=== PATIENT | male | born 1945 | race Caucasian/White ===

== ENCOUNTER 2024-12-02 11:01 | Day surgery (SDC) | payer MEDICARE, OTHER, SELFPAY ==
[2024-12-02] VITALS (10 sets, daily range): BP systolic 127–154; BP diastolic 60–114; BMI 26.1
--- NOTE | 2024-12-02 11:13 | W.ICD.CONTRA ---
Post ICD/BOXING AND PRESSING SUPERVISOR-D
-
History of DE?: Yes
LV Function
Left ventricular function study result?: Ejection Fraction </= 35%
ACEI/ARB/ARNI
Patient already on ACEI/ARB/ARNI: No
ACEI/ARB/ARNI Contraindication: Hypotension and Worsening Renal Function
Beta-Destin
Patient already on Beta Destin: Yes
--- NOTE | 2024-12-02 14:04 | ITS.CL.ICD ---
Construction Contractor - ICD
Implantable Cardioverter Defibrillator
Procedure Report:
Primary Physician: Dr Brandi Tran
Primary Communications Agent: Dr Nahun Isidro
Procedure Date: 12/02/2024
Procedure:
1: Implantation of TELEPHONE STATION INSTALLER-D utilizing LBBAP pacing lead for conduction system pacing
2: Subclavian venography
Indication/Diagnosis:
1. 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
2. CHF - NYHA class 3
3. LVEF < 35% (despite maximally tolerated GDMT > 90 days)
HISTORY: Please see office H&P.
After informed consent was obtained, the patient was brought to the EP laboratory in a postabsorptive, nonsedated state. Peripheral IV access was established. Prophylactic antibiotics were administered prior to incision. Continuous ECG, blood
pressure, and pulse oximetry were initiated. Cardioversion patch electrodes were placed on the patient's chest and back. A grounding patch was applied to the skin. Sedation was administered by anesthesia.
In order to define the extrathoracic portion of the subclavian vein and exclude significant venous obstruction or anomalous anatomy, subclavian venography was performed prior to the procedure. Using the patient's left peripheral IV, contrast was
injected and images were recorded. The left subclavian vein and SVC were found to be widely patent.
The left chest was prepared and draped in a sterile fashion. A 'time out' was called and confirmed. Local anesthesia was injected in the subcutaneous tissue in the infraclavicular area. An incision was made medial to the deltopectoral groove and
parallel to the clavicle. The subcutaneous tissue was dissected the level of the prepectoral fascia. A subcutaneous pocket was created. Under fluoroscopic guidance and with the assistance of the images from the venogram, three separate
venipunctures were made using micropuncture and modified Seldinger technique. These was performed in the extrathoracic portion of the subclavian vein. Guidewires were passed. Peel-away sheaths were placed, and were used to advance the leads into
the circulation.
Using fluoroscopic guidance, the leads were positioned. The RV lead was advanced to the RV outflow tract. Ventricular ectopy was recorded. Images were taken in HERNANDEZ and POLISH views to ensure appropriate lead placement. The lead tip was subsequently
positioned in the RV apex. Adequate sensing and pacing parameters were found, and no diaphragmatic stimulation was seen with high-output pacing.
Fluoroscopy was used to determine likely anatomic site for left bundle branch pacing. The iDoneThistronic C315 sheath was used to deliver the Medtronic 3830 Selectsecure pacing lead with the helix exposed just exposed from the sheath tip during continuous
monitoring when pacemapping the septum during gentle clockwise rotation to obtain a paced QRS morphology of a W pattern in lead V1. Once the suspected optimal site was identified, lead deployment was performed with several rapid rotations as paced
QRS morphology was intermittently monitored until a paced QRS complex in lead V1 demonstrated development of an R wave (qR or rSR). Unipolar pacing impedance dropped by approximately 100-200 ohms suggesting it had reached the left ventricular
subendocardial. Stable VEgm injury current is present throughout lead position and at end of case. Final unipolar pacing impedance is 860 Ohms. Unipolar pacing threshold is stable at 1.0 V @ 0.4 ms. The patient had pre-existing right bundle branch
block/IVCD morphology at baseline. Final conduction system paced QRS complex duration is 117 ms, LVAT is 78 ms, and peak V5 -> peak V1 timing is 39 ms. The C315 sheath was slit under fluoroscopy ensuring lead position and stability.
Next, the right atrial lead was positioned in the right atrial appendage. Adequate sensing and pacing parameters were found, and no diaphragmatic stimulation was seen with high-output pacing. All sheaths were split, and the leads were secured to
the fascia with Ethibond ties.
The pocket was flushed with antibiotic solution and hemostasis was assured. The generator was connected to the leads and placed inside the pocket and sutured in place. Antibiotic envelope was used. Floseal was applied. The wound was closed with 3
running layers of absorbable suture, and steri-strips were applied. Defibrillator function testing was deferred.
Fluoroscopy was used to guide lead placement. Fluoroscopic exposure 6.7 min and 23.56 mGy.
Following the procedure, the patient was taken to the recovery area in stable condition. A chest x-ray was obtained as routine post-procedure care.
IMPLANTS:
Device: Medtronic Model GJOG6B0, SN: [id number]
RA: Medtronic Model 5076, SN: [id number]
RV ICD: Medtronic, Model 6935 M62, SN: [id number]
RV LBBAP: Medtronic 3830, SN:[id number], Interventricular septum at LBB
DEVICE TESTING:
RA: Sensing 3.2 mV, Capture 0.75 V @0.4 msec, Impedance 418 ohms
RV (ICD lead): Sensing 5.8 mV, Capture 0.5 V @0.4 msec, Impedance 551 ohms
RV (LBBAP lead): Sensing not performed due to pacing, Capture 0.5 V @0.4 msec, Impedance 722 ohms
FINAL PROGRAMMING
Jose Daniel Parameters: DDD with 70 to 130 ppm
Tachy Parameters: 150�167 monitor, 167�188 VT zone by ATP with shock; 188 and above VF zone with ATP while charging with shock
COMPLICATIONS:
There were no complications.
CONCLUSIONS:
1: Successful implantation of TELEPHONE STATION INSTALLER-D utilizing LBBAP pacing lead for conduction system pacing
2: Venogram
RECOMMENDATIONS:
- Admit
- Chest x-ray tonight, [facility] in AM.
- IV antibiotics while the patient is admitted.
- OK to resume home medications as indicated
- Pressure dressing to be removed in AM, aquacell to remain until wound check
- Follow-up will be arranged in the office in 7-10 days post-discharge for incision check
Donnell Knapp DO, FACC, RS
Clinical Cardiac Front Load Trash Truck Driver
cc: Dr Nahun Isidro; Dr Brandi Tran
[2024-12-02] MEDS: TRUSOPT 2% OPHTHALMIC SOLUTION 1 DROP OPHTH ×2 (17:00→21:24)
--- NOTE | 2024-12-02 17:05 | PTCARENOTE ---
Rec'd report from Ray in the EP lab; Rec'd pt AAOx3 w/no c/o CP or SOB. Pt's VSS w/HR in the 70's & BP 131/63 on arrival to the floor. Pt is AV paced on telemetry monitoring. Pt's post procedure EKG & CXR completed. Pt w/L chest wall device site
w/dressing C/D/I w/no signs or symptoms of bleeding or hematoma. Pt's spouse at bedside & assisted pt w/ordering his dinner. Discussed plan of care w/pt, including activity & LUE restrictions; pt verbalized his understanding. Call baker within reach
& plan of care ongoing.
[2024-12-02] MEDS: TYLENOL 650 MG PO (19:10)
[2024-12-02] MEDS: ZETIA 5 MG PO (19:11)
[2024-12-02] MEDS: LIPITOR 40 MG PO (19:12)
[2024-12-02] MEDS: COREG 3.125 MG PO (19:38)
[2024-12-02] MEDS: FLOMAX 0.4 MG PO (21:24)
[2024-12-02] MEDS: ANCEF 5 IV (21:24)
[2024-12-03 02:47] VITALS: BP 148/73
[2024-12-03 03:04] VITALS: BMI 25.1
[2024-12-03 03:15] LABS: Hematocrit 38.2 % (39.0-52.0); Hemoglobin 13.3 g/dL (13.0-18.0); Mean Corp Hgb Conc. 34.8 g/dL (33.0-37.0); Mean Corpuscular Hgb 31.6 pg (27.0-31.0); Mean Corpuscular Volume 90.7 fL (80.0-94.0); Mean Platelet Volume 9.7 fL (7.4-10.4); Platelet Count 230 10^3/uL (130-400); Red Blood Cell Count 4.21 10^6/uL (4.70-6.10); Red Cell Dist. Width 13.5 % (11.5-14.5); White Blood Cell Count 7.7 10^3/uL (4.8-10.8)
[2024-12-03 03:36] LABS: Blood Urea Nitrogen 29 mg/dl (9-20); Calcium 9.4 mg/dl (8.4-10.2); Carbon Dioxide 18 mmol/L (22-30); Chloride 112 mmol/L (98-107); Estimated Creatinine Clearance 51 ml/min; Glucose 184 mg/dl (70-99); Potassium 4.7 mmol/L (3.5-5.1); Sodium 140 mmol/L (135-145); eGFR > 60.00
[2024-12-03] MEDS: ANCEF 5 IV (05:39)
--- NOTE | 2024-12-03 05:46 | PTCARENOTE ---
Pt. AV & V paced all night, frequent PVC's. VSS. Left chest Aquacel with pressure dressing CDI with no hematoma/bleeding assessed, immobilizer on. Peripheral circulation intact. Tylenol effective for incisional pain. Pyreg completed
and transmitted this morning.
--- NOTE | 2024-12-03 07:45 | W.PN.CARDCBS ---
Today's Communication / Plan
-
home
outpt wound check
Impression / Plan
-
Impression:
S/P BIVICD 12/02/2024
Cardiomyopathy
HTN
Hyperlipidemia
DAPT therapy
Recommend:
Stable for discharge
Can remove pressure dressing
Outpatient wound check
Appropriate A/V sensing
Progress Note - [place] Man
Subjective
Date of Service: December 03, 2024
no pain
feels well
Objective
Labs:
12/03/24 02:58
12/03/24 02:58
Labs
Hgb 13.3 g/dL (13.0-18.0) 12/03/24 02:58
Hct 38.2 % (39.0-52.0) L 12/03/24 02:58
Plt Count 230 10^3/uL (130-400) 12/03/24 02:58
Sodium 140 mmol/L (135-145) 12/03/24 02:58
Potassium 4.7 mmol/L (3.5-5.1) 12/03/24 02:58
BUN 29 mg/dl (9-20) H 12/03/24 02:58
Creatinine 1.2 mg/dL (0.7-1.3) 12/03/24 02:58
Glucose 184 mg/dl (70-99) H 12/03/24 02:58
Vital Signs and I&O:
Vital Signs
Temp Pulse Resp BP Pulse Ox
97.7 F 75 18 148/73 95
12/03/24 02:48 12/03/24 04:00 12/03/24 02:48 12/03/24 02:47 12/03/24 02:48
Vital Signs
Temp Pulse Resp BP Pulse Ox
97.7 F 75 18 148/73 95
12/03/24 02:48 12/03/24 04:00 12/03/24 02:48 12/03/24 02:47 12/03/24 02:48
Intake & Output
12/01/24 12/02/24 12/03/24 12/04/24
06:59 06:59 06:59 06:59
Intake Total 1939
Balance 1939
Physical Exam
Physical Exam
exam:
heent ncat
jvp 6
cor regular
site cdi
no ext edema
[2024-12-03 07:51] VITALS: BP 152/59
[2024-12-03] MEDS: COREG 3.125 MG PO (07:56)
[2024-12-03] MEDS: ASPIR LOW (ENTERIC COATED) 81 MG PO (07:57)
[2024-12-03] MEDS: TRUSOPT 2% OPHTHALMIC SOLUTION 1 DROP OPHTH (07:57)
[2024-12-03] MEDS: IMDUR (EXTENDED RELEASE) 30 MG PO (07:57)
[2024-12-03] MEDS: NON-FORMULARY ITEM 1 DROP BOTH EYES (07:57)
--- NOTE | 2024-12-03 11:58 | CM ---
CM following for DC planning needs.
Met w/ patient, spouse at bedside to complete initial assessment.
Patient resides w/ spouse in a private, [facility]. Functionally, patient is indep. w/ ADLs, mobility without the use of any assisted device, though some times uses a SPC while ambulating in the community.
DC plan is for home, no needs.
--- NOTE | 2024-12-03 11:59 | PTCARENOTE ---
~[id number]: Handoff report received from nightshift RN. Pt Aox4, V paced/ AV paced with PVCs on tele, RA. Pt denies pain at this time. Limb immobilizer in place s/p AICD/PPM insertion yesterday. L upper chest with original post-op prpessure dressing
in place, CDI. Ax1 with cane OOB to chair for breakfast. All needs met at this time, call baker within reach.
~[id number]: Discharge paperwork reviewed with patient and , all questions answered. tele monitor and IV removed from patient. Patient wheeled down to lobby in stable condition.
[2024-12-03 12:00] VITALS: BP 117/69
== END 2024-12-03 12:00 | disposition home or self-care (01) ==
LOC: CATH 11:01
PROVIDERS: Nurse Practitioner; ATTENDING PHYSICIAN Internal Medicine Cardiovascular Disease
DX: I11.0 Hypertensive heart disease with heart failure (principal); I50.22 Chronic systolic (congestive) heart failure; I42.9 Cardiomyopathy, unspecified; I49.1 Atrial premature depolarization; E78.5 Hyperlipidemia, unspecified; I49.3 Ventricular premature depolarization; I50.9 Heart failure, unspecified; I45.2 Bifascicular block
CPT/HCPCS: 33249; 71045; 80048; 85027; 93005; C1777; C1882; C1887; C1892; C1898

== ENCOUNTER 2025-01-27 19:10 | Inpatient (IN) | payer MEDICARE, OTHER, SELFPAY ==
[2025-01-27] VITALS (9 sets, daily range): BP systolic 129–145; BP diastolic 62–91; BMI 26.8; BMI 25.2
--- NOTE | 2025-01-27 15:40 | ED.GENMED ---
History of Present Illness
General
Chief Complaint: Breathing Problem
Time Seen by Provider: 01/27/25 15:40
History of Present Illness
History of Present Illness:
PAST MEDICAL HISTORY AND REVIEW OF OLD RECORDS
- The patient has history of CAD, high blood pressure, heart failure. I reviewed records, the patient was admitted here 2 months ago, seen by Dr. Knapp and diagnosed with cardiomyopathy status post BiV ICD implantation.
Note:
CHIEF COMPLAINT(S)
Shortness of breath for several days.
HISTORY OF PRESENT ILLNESS
The patient is a 79-year-old male with a history of cardiomyopathy who presented with shortness of breath over the last several days. He does not normally use supplemental oxygen at home. He reports feeling hypoxic and mentioned that his oxygen
saturation was around 80%. The patient received a pacemaker placement in November. At that time, he had a cardiac catheterization and was prescribed Furosemide (Lasix) for fluid retention, but only took it as directed for three days.
The patient reports stable weight with no recent gain, but notes swelling in the right ankle. He denies any history of blood clots. Neuropathy from the feet up is present but perceived as mild. He has not had significant leg swelling. The patient
further reported significant coughing, especially at night, clearly sensing crackling and wheezing, more pronounced on the right side. He compared the noise to a 'washing machine.'
He feels short of breath when lying flat, thus needing to sit forward all night. A chest x-ray and blood tests to check for heart failure markers are planned. A trial of a breathing treatment was suggested to help loosen congestion.
PAST MEDICAL AND SURIGICAL HISTORY
History of cardiomyopathy and pacemaker placement.
MEDICATIONS
Furosemide (Lasix) was taken previously for fluid retention as prescribed for three days for months ago after the last heart catheterization
PHYSICAL EXAM
General: Alert, no acute distress.
Skin: Warm, dry.
Head: Normocephalic, atraumatic.
Neck: Supple, trachea midline.
Eye Ears, nose, mouth and throat: Oral mucosa moist.
Cardiovascular: Normal peripheral perfusion, mild swelling noted in the right ankle.
Respiratory: Crackling noted, more on the right side, but no wheeze, some decreased breath sounds at the left base
Gastrointestinal: Abdomen nondistended.
Back: Normal range of motion, normal alignment.
Musculoskeletal: Normal range of motion, normal strength. Trace if any right ankle edema
Neurological: Alert and oriented to person, place, time, and situation, No focal neurological deficit observed.
Psychiatric: Cooperative, appropriate mood & affect.
PLAN
1. Obtain a chest x-ray to assess for any pulmonary issues or cardiac-related fluid overflow.
2. Conduct blood tests to check for heart failure markers.
3. Administer a breathing treatment to potentially alleviate symptoms.
DIFFERENTIAL DIAGNOSIS
The Differential Diagnosis includes, in no particular order and is not limited to:
1. Congestive heart failure
2. Chronic obstructive pulmonary disease (COPD)
3. Pulmonary edema
4. Acute bronchitis
5. Pneumonia
6. Pulmonary embolism
7. Viral respiratory infection
8. Asthma exacerbation
9. Pneumothorax
10. Pleural effusion
RADIOLOGY
- Chest x-ray showed density at the left base concerning for effusion/pneumonia
EKG
- V paced, rate of 82
LABS
-
UPDATE
- Patient has a sensation of rattling/wheeze�will try a breathing treatment.
SUMMARY OF ENCOUNTER
The patient, a 79-year-old male with a history of cardiomyopathy and pacemaker placement, presented with shortness of breath and crackling noises in the lungs. An x-ray revealed significant fluid buildup, raising the possibility of a combination of
pneumonia and fluid outside the lung. Further complicating the picture, the patient showed elevated cardiac markers, suggesting potential coronary involvement. Blood work indicated signs suggestive of congestive heart failure, with cardiac blood
markers significantly elevated over the norm. Therefore, the decision was made to treat the patient with intravenous diuretics (furosemide) and antibiotics and to admit him for further management and evaluation, including an echocardiogram.
DISPOSITION
Admit
ASSESSMENT
The patient likely has a combination of pneumonia and congestive heart failure. The specific findings of unilateral fluid collection on the x-ray and elevated cardiac markers suggest that there may be coronary insufficiency involved as well.
EMERGENCY TREATMENTS ADMINISTERED
IV antibiotics and IV furosemide (Lasix).
MANAGEMENT OF THE PATIENTS CARE WAS DISCUSSED WITH
Hospitalist was consulted for admission and further patient management.
INDEPENDENT REVIEW OF LABS AND INTERPRETATION OF TESTS
My independent review of cardiac blood work shows an elevated level over 14,000, significantly above the normal threshold of 1,000, indicating potential heart failure.
PLAN
Admit the patient for close monitoring and execute an echocardiogram to reassess the cardiac function. Continue treatment with IV antibiotics and furosemide to manage fluid buildup and possible infection. Follow up on repeat cardiac workup to
differentiate between coronary issues and heart failure exacerbation.
PATIENT EDUCATION AND COUNSELING
The patient was counseled on the possible implications of heart failure and pneumonia, as well as the need for hospital admission for further evaluation and management. The role of Lasix in managing fluid overload was explained.
MEDICATION RECONCILIATION
The patient was administered IV furosemide (Lasix) and IV antibiotics.
MEDICAL DECISION MAKING
-Number and Complexity of Problems Addressed: Chronic conditions affecting care: cardiomyopathy, possible pneumonia, congestive heart failure. Differential diagnosis includes possibilities such as pulmonary edema, pulmonary embolism, COPD
exacerbation, and other cardiac-related issues.
-Data:
Category 1
-Tests reviewed: Chest x-ray with independent review showing fluid accumulation potentially indicative of pneumonia or fluid external to the lung. Elevated cardiac markers noted in lab results indicating possible heart failure.
Category 3
-Discussion with hospitalist regarding patient management, including potential need for further cardiac evaluation and hospital admission.
-Risk: Admission was deemed necessary due to the patients condition and significant findings warranting further inpatient care, including further cardiac evaluation and possible repeat echocardiogram.
DIAGNOSIS
1. Congestive Heart Failure Exacerbation (I50.9)
2. Pneumonia (J18.9)
3. Possible Coronary Artery Disease (I25.10)
Past History
Past History
ED Past Medical History: None
ED Past Surgical History: Appendectomy
Social History
Tobacco: Smoker
Phy Exam
Physical Exam
Physical Exam:
See HPI
Scores
Heart Failure Risk
Heart Failure Risk Score: Not Applicable
Course
Orders/Labs/Results
Orders:
Orders
01/27/25 15:16
EKG [Electrocardiogram (*1)] Urgent
Reason for Study: Shortness of Breath
EKG- Treatment ONCE
01/27/25 15:46
CMP [Comprehensive Metabolic Panel] Urgent
Complete Blood Count/With Diff Urgent
NT-proBNP Urgent
PT/INR [Prothrombin Time] Urgent
PTT Urgent
Troponin I Urgent
01/27/25 15:50
Ipratropium/Albuterol Sulfate [Duoneb] 3 ml INH R NOW STA
CR Chest - 2 Views Urgent
Comment:
Reason For Exam: sob cough
01/27/25 17:16
Azithromycin 500 mg/250 ml [Zithromax Infusion] 500 mg in 250 ml IV NOW
CefTRIAXone [Rocephin] 1,000 mg IV NOW STA
Furosemide [Lasix] 40 mg IV NOW STA
Abnormal Lab Results
01/27/25
15:46
WBC 11.5 H 10^3/uL
(4.8-10.8)
RBC 3.91 L 10^6/uL
(4.70-6.10)
Hgb 11.9 L g/dL
(13.0-18.0)
Hct 35.0 L %
(39.0-52.0)
Abs Immat Gran (auto) 0.1 H 10^3/uL
(0-0.05)
Absolute Neuts (auto) 8.6 H 10^3/uL
(1.4-6.5)
Absolute Monos (auto) 1.1 H 10^3/uL
(0.1-0.6)
Immature Gran % 0.6 H %
(0-0.5)
Neutrophils % 75.4 H %
(42.2-75.2)
Lymphocytes % 12.6 L %
(20.5-51.1)
Monocytes % 9.9 H %
(1.7-9.3)
BUN 41 H mg/dl
(9-20)
Glucose 168 H mg/dl
(70-99)
Troponin I 1.140 H* ng/ml
Total Protein 6.1 L g/dl
(6.3-8.2)
01/27/25 15:46
01/27/25 15:46
Vital Signs
Initial and Last Documented VS:
Initial Vital Signs
Temp Pulse Resp BP Pulse Ox
36.4 C 73 18 140/62 92
01/27/25 15:12 01/27/25 15:12 01/27/25 15:12 01/27/25 15:12 01/27/25 15:12
Last Documented Vital Signs
Temp Pulse Resp BP Pulse Ox
36.4 C 80 20 129/77 97
01/27/25 15:12 01/27/25 16:45 01/27/25 16:45 01/27/25 16:00 01/27/25 16:45
*Pulse Oximetry
SaO2: 92
Oxygen Mode of Delivery: Room air
Patient hypoxic: yes (Room air sat 88%)
*Critical Care Note
Total Time (30-74mins, 75-104mins- exclusive of procedures): Not Applicable
ED Attending Note
-
Portions of this chart may have been created with voice recognition software.� Occasional wrong word or��sound alike� substitutions may have occurred due to the inherent limitations of voice recognition software.
Discharge Plan
Departure
Prescriptions:
No Action
atorvastatin 40 mg Tablet
40 mg PO QPM
isosorbide mononitrate 30 mg Tablet Extended Release 24 Hr
30 mg PO DAILY
aspirin 81 mg Tablet,Delayed Release (Dr/Ec)
81 mg PO DAILY
vitamin B complex Tablet
1 tab PO QPM
brimonidine-timolol [Combigan] 0.2-0.5 % Drops
1 drp BOTH EYES BID
ticagrelor [Brilinta] 60 mg Tablet
60 mg PO BID
venlafaxine 150 mg Capsule,Extended Release 24hr
150 mg PO HS
carvedilol 3.125 mg Tablet
3.125 mg PO BID
ezetimibe 10 mg Tablet
5 mg PO QPM
coenzyme Q10 [Co Q-10] 200 mg Capsule
200 mg PO QPM
acetaminophen [Tylenol] 325 mg Tablet
650 mg PO Q6HPRN PRN (Reason: mild pain)
Theragen Tablet
1 tab PO QPM
calcium carbonate [Tums] 200 mg calcium (500 mg) Tablet,Chewable
200 mg PO BIDPRN PRN (Reason: gerd)
venlafaxine [Effexor XR] 75 mg Capsule,Extended Release 24hr
75 mg PO HS
Referrals:
Brandi Tran MD [Family Provider, Internal Medicine]
Interventions
Interventions:
*Risk Screen - Suicide Last Done: 01/27/25 15:12
*General Assessment Last Done: 01/27/25 15:34
*Neglect/Abuse Screening Last Done: 01/27/25 15:12
*ED- Fall Risk Assessment Last Done: 01/27/25 15:34
*ED COVID-19 Vaccine History Last Done: 01/27/25 15:34
ED- Cardiac Assessment Last Done: 01/27/25 15:34
ED- Pulmonary Assessment Last Done: 01/27/25 15:34
Discharge Date and Time
Print Language: TUNISIAN
[2025-01-27 15:58] LABS: Hematocrit 35.0 % (39.0-52.0); Hemoglobin 11.9 g/dL (13.0-18.0); Mean Corp Hgb Conc. 34.0 g/dL (33.0-37.0); Mean Corpuscular Volume 89.5 fL (80.0-94.0); Nucleated Red Blood Cells % 0 % (-); Platelet Count 362 10^3/uL (130-400); Red Cell Dist. Width 13.8 % (11.5-14.5)
[2025-01-27 16:07] LABS: INR 1.08; PT 14.6 Sec (11.4-14.6)
[2025-01-27 16:08] LABS: APTT 32.5 Sec (23.4-35.0)
[2025-01-27 16:10] LABS: ALT (SGPT) 20 U/L (0-50); AST (SGOT) 22 U/L (17-59); Albumin 3.7 g/dl (3.5-5.0); Alkaline Phosphatase 72 U/L (38-126); Blood Urea Nitrogen 41 mg/dl (9-20); Calcium 9.1 mg/dl (8.4-10.2); Carbon Dioxide 22 mmol/L (22-30); Chloride 107 mmol/L (98-107); Estimated Creatinine Clearance 45 ml/min; Glucose 168 mg/dl (70-99); Potassium 4.1 mmol/L (3.5-5.1); Sodium 138 mmol/L (135-145); Total Protein 6.1 g/dl (6.3-8.2); eGFR 56.23
[2025-01-27] MEDS: DUONEB 3 ML INH (16:23)
[2025-01-27 16:26] LABS: Troponin I 1.140 ng/ml
[2025-01-27] MEDS: LASIX 40 MG IV (17:31)
[2025-01-27] MEDS: ROCEPHIN 1000 MG IV (17:31)
[2025-01-27] MEDS: ZITHROMAX INFUSION 250 IV (17:32)
--- NOTE | 2025-01-27 17:44 | HPS.HSE ---
Family Physician
-
Family Physician: Brandi Tran
Chief Complaint
-
cough and shortness of breath
History of Present Illness
Mr. Darvin Ovalle is a 79 yo man with hx CAD (CABG 1984, PCI 2015), HFrEF 25-30% status post BiV ICD implantation (12/02), essential HTN, HLD, CKD III, abdominal aortic aneurysm s/p endovascular aortic repair 2018, bilateral carotid stensois s/p
bilateral carotid endarterectomies, PAD s/p left femoral endarterectomy 2018, RLE stenting, GERD, BPH presents to the ER with cough and shortness of breath.
Patient states that symptoms started a couple of days ago and have been progressing. Last night he had trouble breathing and couldn't lay flat. Cough is non-productive. He had chest pain only when coughing. No fevers/chills. No
nausea/vomiting/diarrhea. He noticed new swelling in ankles today.
He is not on daily Lasix, had an old prescription of 40mg which he took. He states he urinated a decent amount then had some improvement in symptoms.
Medical History
Past Medical History
Past Medical History: Reports Other
Additional Past Medical History:
1. Coronary artery disease/myocardial infarction, status post CABG 1984 and PCI with left main stent 2015; on dual antiplatelet therapy.
2. Hypertension.
3. Dyslipidemia.
4. Bifascicular block.
5. Ischemic cardiomyopathy, reduced ejection fraction.
6. Abdominal aortic aneurysm, status post endovascular repair 2018.
7. Bilateral carotid artery stenosis, status post bilateral carotid endarterectomy.
8. Peripheral vascular disease, status post left femoral endarterectomy, 2018, and reported right lower extremity stenting.
9. Venous varicosities, status post varicose vein stripping.
10. Mild-moderate mitral regurgitation.
11. Moderate tricuspid regurgitation.
12. Mild-moderate pulmonary regurgitation.
13. Mild pulmonary hypertension.
14. Chronic kidney disease stage 3.
15. Non-insulin dependent diabetes per records.
16. GERD.
17. Colon polyps.
18. Diverticulosis.
19. Hemorrhoids.
20. Peripheral neuropathy.
21. Multilevel degenerative disc disease with stenosis.
22. Ambulatory dysfunction.
23. BPH.
24. Left central retinal vein occlusion with resultant left eye blindness.
25. Glaucoma.
26. Depression.
27. Remote history of tobacco abuse.
Past Surgical History: Reports Other
Additional Past Surgical History:
1. CABG.
2. PCI with left main stent.
3. Endovascular AAA repair and left femoral endarterectomy.
4. Bilateral carotid endarterectomy.
5. Reported right lower extremity stenting.
6. Venous varicosity stripping.
7. Lumbar surgery.
8. Appendectomy.
9. Colonoscopy.
Social History
Tobacco: Former Smoker (He is a former 2 pack per day cigarette smoker who quit tobacco altogether in 1999. )
Alcohol: None
Personal:
Living: Other (He lives with his in a 2 story home. )
Family History
Family History: Not pertinent
Allergies / Home Medications
Allergies reflects when Allergies were last updated in [facility].
Home Medications with original date entered in [facility]
Allergy/Medication List:
Allergies
Allergy/AdvReac Type Severity Reaction Status Date / Time
No Known Allergies Allergy Verified 01/27/25 15:11
Home Medications
aspirin 81 mg tablet,delayed release 81 mg PO DAILY 09/11/24
atorvastatin 40 mg tablet 40 mg PO QPM 09/11/24
brimonidine 0.2 %-timolol 0.5 % eye drops (Combigan) 1 drp BOTH EYES BID 09/11/24
isosorbide mononitrate 30 mg tablet,extended release 24 hr 30 mg PO DAILY 09/11/24
ticagrelor 60 mg tablet (Brilinta) 60 mg PO BID 09/11/24
vitamin B complex 1 tab PO QPM 09/11/24
carvedilol 3.125 mg tablet 3.125 mg PO BID 12/02/24
coenzyme Q10 200 mg capsule (Co Q-10) 200 mg PO QPM 12/02/24
ezetimibe 10 mg tablet 5 mg PO QPM 12/02/24
venlafaxine 150 mg capsule,extended release 24 hr 150 mg PO HS 12/02/24
acetaminophen 325 mg tablet (Tylenol) 650 mg PO Q6HPRN PRN mild pain 01/27/25
calcium carbonate (Tums) 200 mg PO BIDPRN PRN gerd 01/27/25
therapeutic multivitamin 1 tab PO QPM 01/27/25
venlafaxine 75 mg capsule,extended release 24 hr (Effexor XR) 75 mg PO HS 01/27/25
Review of Systems
-
History Source: Patient
A 12 point ROS was completed and negative except as noted: Yes
Physical Exam
Vital Signs
Vital Signs
Temp Pulse Resp BP Pulse Ox
97.6 F 86 20 138/74 97
01/27/25 15:12 01/27/25 17:31 01/27/25 16:45 01/27/25 17:31 01/27/25 16:45
Physical Exam
General: No Apparent Distress and Conversant
HEENT: PERRLA
Respiratory: Rales
Cardiac: S1/S2, Regular Rhythm and JVD
GI: Soft and Non Tender
Musculoskeletal: Other (1+ pitting edema )
Skin: Warm and Dry; No Rash
Neuro: AO x 3
Psych: Calm
Laboratory Results
-
01/27/25 15:46
01/27/25 15:46
Laboratory Results
PT 14.6 Sec (11.4-14.6) 01/27/25 15:46
INR 1.08 01/27/25 15:46
APTT 32.5 Sec (23.4-35.0) 01/27/25 15:46
Total Bilirubin 0.9 mg/dl (0.2-1.3) 01/27/25 15:46
AST 22 U/L (17-59) 01/27/25 15:46
ALT 20 U/L (0-50) 01/27/25 15:46
Alkaline Phosphatase 72 U/L (38-126) 01/27/25 15:46
Troponin I 1.140 ng/ml H* 01/27/25 15:46
Data Reviewed
-
Diagnostic Radiology: Report Reviewed by me
Lab Data: Labs Reviewed by me
Impression/Plan
-
Mr. Darvin Ovalle is a 79 yo man with hx CAD (CABG 1984, PCI 2015), HFrEF 25-30% status post BiV ICD implantation (12/02), essential HTN, HLD, CKD III, abdominal aortic aneurysm s/p endovascular aortic repair 2018, bilateral carotid stenosis s/p
bilateral carotid endarterectomies, PAD s/p left femoral endarterectomy 2018, RLE stenting, GERD, BPH presents to the ER with cough and shortness of breath.
Triage VS: T 36.4C, P 73, RR 18, BP 140/62, SpO2 92%; 88% on RA
LABS: WBC 11.5, Hg 11.9, PLT 362, Na 138, K+ 4.1, Cl 107, BUN 22, Cr 1.3, Glucose 168, T. Bili 0.9, AST 22, ALT 20, Trop 1.140, BNP 63520
CXR
IMPRESSION:
New small to moderate left basilar opacification at least in part suggesting pleural effusion with possible accompanying atelectasis and/or pneumonia.
MAR: Ceftriaxone, Azithromycin, IV Lasix, Duonebs
Hypoxic Respiratory Insufficiency, SpO2 88% on RA
-in setting of heart failure exacerbation and suspected pneumonia
-O2 support as needed
Heart Failure reduced Ejection Fraction, Acute Exacerbation
s/p BiV ICD 12/02
-patient is not on standing Lasix at home
-continue Lasix 40mg IV QD
-strict I/O, daily weights
-Cardiology consult
-CASH REGISTER REPAIRER cardiac regimen (see below)
Elevated Troponin, suspect non-ischemic myocardial injury in setting of pneumonia and heart failure
-continue home medications (see below)
-trend Troponin
-Cardiology consult as above
Coronary Artery Disease
-s/p CABG 1984, PCI
-CASH REGISTER REPAIRER cardiac regimen:
Aspirin 81mg PO QD
Brilinta 60mg PO BID
Imdur 30mg PO QD
Coreg 3.125mg PO BID
Lipitor 40mg qhs
-CASH REGISTER REPAIRER Ezetimibe 5mg PO qhs
abdominal aortic aneurysm s/p endovascular aortic repair 2017
Bilateral carotid stensois s/p bilateral carotid endarterectomies
PAD s/p left femoral endarterectomy 2017, RLE stenting
GERD
BPH
Anxiety - CASH REGISTER REPAIRER Venlafaxine
DVT PPx SCD, encourage mobility
FULL CODE
76 minutes spent on patient care
[2025-01-27 18:42] LABS: COVID-19 Antigen Negative (Negative)
[2025-01-27 18:59] LABS: Troponin I 1.360 ng/ml
[2025-01-27] MEDS: ZETIA 5 MG PO (21:54)
[2025-01-27] MEDS: COREG 3.125 MG PO (21:55)
[2025-01-27] MEDS: MUCINEX 600 MG PO (21:55)
[2025-01-27] MEDS: EFFEXOR XR 75 MG PO (21:56)
[2025-01-27] MEDS: BRILINTA 60 MG PO (21:57)
[2025-01-27] MEDS: EFFEXOR XR 150 MG PO (21:57)
[2025-01-27] MEDS: ALPHAGAN 0.2% EYE DROPS 1 DROP OPHTH (21:59)
[2025-01-27] MEDS: TIMOPTIC 0.5% OPHTHALMIC SOLUTION 1 DROP OPHTH (21:59)
--- NOTE | 2025-01-27 22:54 | PTCARENOTE ---
At 2049 Pt received from ED via stretcher w/ spouse at bedside; Telemetry orders- A paced on monitor, occasionally A-V Paced. Afebrile, HR 84 RR 20 BP 145/72 pox 96% 2LNC. AAOx3, Blind in left eye, utilizes SPC- stead on feet. PMH and medications
reviewed by this RN and patient. Plan of care discussed. Call baker within reach.
[2025-01-27 23:48] LABS: Troponin I 1.180 ng/ml
[2025-01-28] VITALS (7 sets, daily range): BP systolic 114–163; BP diastolic 57–80; BMI 25.0
[2025-01-28 05:30] LABS: Hematocrit 38.5 % (39.0-52.0); Hemoglobin 12.9 g/dL (13.0-18.0); Mean Corp Hgb Conc. 33.5 g/dL (33.0-37.0); Mean Corpuscular Volume 91.0 fL (80.0-94.0); Platelet Count 343 10^3/uL (130-400); Red Cell Dist. Width 13.8 % (11.5-14.5)
[2025-01-28 05:50] LABS: ALT (SGPT) 22 U/L (0-50); AST (SGOT) 27 U/L (17-59); Albumin 3.9 g/dl (3.5-5.0); Alkaline Phosphatase 80 U/L (38-126); Blood Urea Nitrogen 37 mg/dl (9-20); Calcium 9.2 mg/dl (8.4-10.2); Carbon Dioxide 27 mmol/L (22-30); Chloride 107 mmol/L (98-107); Estimated Creatinine Clearance 45 ml/min; Glucose 123 mg/dl (70-99); HDL Cholesterol 35 mg/dl; LDL Cholesterol, Calculated 65 mg/dl; Magnesium 2.2 mg/dl (1.6-2.3); Potassium 4.1 mmol/L (3.5-5.1); Sodium 142 mmol/L (135-145); Total Protein 6.5 g/dl (6.3-8.2); Very Low Density Lipoprotein 14 mg/dl (0-30); eGFR 56.23
[2025-01-28 06:12] LABS: Troponin I 0.875 ng/ml
--- NOTE | 2025-01-28 08:21 | CON.CAR ---
Addendum entered and electronically signed by Greg Hoffman MD 01/28/25 15:55:
I saw and examined the patient.
The Hair Spring Cutter's note was reviewed and I agree with the note.
Comment:
GEN: No distress, awake, Ox3
HEENT: supple, anicteric, mmm
LUNGS: bilat rhonchi
CV: Reg, S1/S2, 1/6 syst LSB, S3+
ABD: soft, BS+, NT/ND
EXT: +1 edema
NEURO: Gross non-focal
SKIN: No rash
PLan:
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
[facility] with shortness of breath, fatigue, and orthopnea. In November he had a biventricular ICD placed overall did well. He states that for 2 weeks has had orthopnea and bloating. He denies any significant chest pains. He denies any
fevers or chills.
He was also found to have a troponin of 1.3.
He presents with acute on chronic heart failure with reduced ejection fraction. Start IV Lasix 40 mg IV twice daily.
Increase Coreg to 6.25 mg p.o. twice daily. Start Farxiga 10 mg daily.
Creatinine is at 1.3. Continue to follow with diuresis.
He is not on DELIA/ARB/Arni due to history of acuterenal failure and elevated creatinine.
For now we will treat his coronary disease medically. He denies overt chest pains although he does have an abnormal troponin of 1.2. Will review cath films with train driver to assess other possible areas to consider for CAD
treatment. For now would continue medical therapy.
Continue aspirin, atorvastatin, Zetia, Imdur, Brilinta, carvedilol.
LDL is 65
Original Note:
Consultation
Consultation Request
Date/Time Consultation Requested: 01/27/2025 at 2037
Date/Time Consultation Performed: 01/28/2025 at 0822
Requesting Provider: Dr. Reyna
Performing Provider: Dr. Hoffman
Reason for Consultation: Acute HFrEF
Medical History
-
History of Present Illness:
Patient came to the ER yesterday with symptoms of orthopnea and TOUSSAINT and was admitted with acute HFrEF and cardiology is now consulted. Patient generally follows with Dr. Treviño at [facility] but has had cardiac testing recently here at [facility] due
to worsening EF. Patient has a history of remote CABG in 1984 and then had left main PCI in 2015. He underwent repeat cardiac cath on 09/15/2024 that showed patent grafts and an IFR assessment of his RCA lesion was negative, there was also evidence
of a ramus lesion that could not be intervened on and was managed medically. Patient eventually had [employer] FREIGHT RATE SPECIALIST�D 12/02/24. Despite CM the patient is not chronically on loop diuretic. Patient feels that for the last 2 weeks he has had increasing
SOB and his biggest symptom is orthopnea, he has not slept due to his orthopnea symptoms. Patient noticed increased bloating over the last few days, but interestingly no LE edema. He went to the urgent care and was then referred to the ER
yesterday where he was admitted with acute HF.
PMH:
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
s/p [employer] FREIGHT RATE SPECIALIST�D 12/02/24
CAD
s/p CABG (1984)
Left main PCI (2015)
s/p cardiac cath with iFR negative RCA, 3 patent grafts severe stenosis in the ramus that was unable to be intervened on and will be managed medically 09/15/24
CKD3a
HTN
Hyperlipidemia
AAA, s/p EVAR (2017)
B/L Carotid artery stenosis, s/p bilateral carotid endarterectomies
PAD, s/p Left Femoral endarterectomy (2017) and prior RLE stenting
Left retinal occlusion with blindness/glaucoma
GERD
BPH
Past Medical History
Past Medical History: Other (In HPI)
Past Surgical History: Appendectomy and Cardiac (CABG and PCI, AAA repair, B/L CEA)
Social History
Tobacco: Former Smoker
Alcohol: None
Drug: None
Personal:
Living: With Family
Family History
Family History: CAD and Hypertension
Allergies / Home Medications
Allergy/AdvReac Type Severity Reaction Status Date / Time
No Known Allergies Allergy Verified 01/27/25 15:11
�Medication �Instructions �Recorded �Confirmed �Type
aspirin 81 mg tablet,delayed 81 mg PO DAILY 09/11/24 01/27/25 History
release
atorvastatin 40 mg tablet 40 mg PO QPM 09/11/24 01/27/25 History
brimonidine 0.2 %-timolol 0.5 % 1 drp BOTH EYES BID 09/11/24 01/27/25 History
eye drops (Combigan)
isosorbide mononitrate 30 mg 30 mg PO DAILY 09/11/24 01/27/25 History
tablet,extended release 24 hr
ticagrelor 60 mg tablet (Brilinta) 60 mg PO BID 09/11/24 01/27/25 History
vitamin B complex 1 tab PO QPM 09/11/24 01/27/25 History
carvedilol 3.125 mg tablet 3.125 mg PO BID 12/02/24 01/27/25 History
coenzyme Q10 200 mg capsule (Co 200 mg PO QPM 12/02/24 01/27/25 History
Q-10)
ezetimibe 10 mg tablet 5 mg PO QPM 12/02/24 01/27/25 History
venlafaxine 150 mg 150 mg PO HS 12/02/24 01/27/25 History
capsule,extended release 24 hr
acetaminophen 325 mg tablet 650 mg PO Q6HPRN PRN mild pain 01/27/25 01/27/25 History
(Tylenol)
calcium carbonate (Tums) 200 mg PO BIDPRN PRN gerd 01/27/25 01/27/25 History
therapeutic multivitamin 1 tab PO QPM 01/27/25 01/27/25 History
venlafaxine 75 mg capsule,extended 75 mg PO HS 01/27/25 01/27/25 History
release 24 hr (Effexor XR)
Review of Systems
-
History Source: Patient
All other systems: Negative unless noted
Physical Exam
Vital Signs
Temp Pulse Resp BP Pulse Ox
97.6 F 74 20 137/73 97
01/28/25 03:12 01/28/25 03:12 01/28/25 03:12 01/28/25 03:12 01/28/25 03:12
GEN: NAD AAO x3
HEENT: EOMI MMM
LUNGS: 2 L NC. Decreased breath sounds at bases B/L, no audible wheeze
CV: AV paced. Reg, S1/S2, no murmur
ABD: soft, BS+, NT, ND
EXT: No edema B/L LE
NEURO: Gross non-focal
SKIN: No rash
Lab Results
01/28/25 05:20
01/28/25 05:20
Troponin I 0.875 ng/ml H* D 01/28/25 05:20
Roa-E-Ezrqeqozimn Pept 15248 pg/ml 01/27/25 15:46
Impression / Plan
-
PCP: Brandi Tran MD
CDY: Nahun Isidro MD
Impression:
Admitted with acute HFrEF 01/27/2025
Acute HFrEF
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
s/p [employer] FREIGHT RATE SPECIALIST�D 12/02/24
Elevated troponin, peak 1.36
CAD
s/p CABG (1984)
Left main PCI (2015)
s/p cardiac cath with iFR negative RCA, 3 patent grafts severe stenosis in the ramus that was unable to be intervened on and will be managed medically 09/15/24
CKD3a
HTN
Hyperlipidemia
AAA, s/p EVAR (2018)
B/L Carotid artery stenosis, s/p bilateral carotid endarterectomies
PAD, s/p Left Femoral endarterectomy (2017) and prior RLE stenting
Left retinal occlusion with blindness/glaucoma
GERD
BPH
Echo 09/09/2024: EF 25 to 30%, mild to moderate MR, moderate TR with mild PHTN and PAP 40 mmHg
Plan:
-Patient came to the ER yesterday with symptoms of orthopnea and TOUSSAINT and was admitted with acute HFrEF and cardiology is now consulted. Patient generally follows with Dr. Treviño at [facility] but has had cardiac testing recently here at [facility] due
to worsening EF. Patient has a history of remote CABG in 1984 and then had left main PCI in 2015. He underwent repeat cardiac cath on 09/15/2024 that showed patent grafts and an IFR assessment of his RCA lesion was negative, there was also evidence
of a ramus lesion that could not be intervened on and was managed medically. Patient eventually had [employer] FREIGHT RATE SPECIALIST�D 12/02/24. Despite CM the patient is not chronically on loop diuretic. Patient feels that for the last 2 weeks he has had increasing
SOB and his biggest symptom is orthopnea, he has not slept due to his orthopnea symptoms. Patient noticed increased bloating over the last few days, but interestingly no LE edema. He went to the urgent care and was then referred to the ER
yesterday where he was admitted with acute HF.
-ECG reviewed by me is a sensed V paced 01/28/2025
-Weight is down 1 lb overnight with Lasix 40 mg IV daily diuresis. Patient was not taking a diuretic prior to admission. Patient reports symptomatic improvement, but continues on supplemental oxygen. If no significant improvement following
another day of IV diuresis would increase to BID dosing on 01/29/2025
-EF was 25 to 30% by echo 09/09/2024, follow-up echo study ordered by me
-Outpatient dose of Coreg 3.125 mg BID was continued on admission, HR is in the 80s so will increase to 6.25 mg BID
-Patient is not chronically on DELIA/ARB/ARNI due to previous intolerance with ELEAZAR and hypotension
-Patient is not chronically on aldosterone antagonist due to previous intolerance with ELEAZAR and hypotension
Patient is not chronically on SGLT2 inhibitor, GFR is 56. Will start Farxiga 10 mg daily and ask CM to check cost
-Troponin peaked at 1.36, but no chest pain. ECG is nondiagnostic due to paced rhythm. Check echo to look for any new WMA. Of note patient had patent grafts, negative IFR assessment of an RCA lesion, but also ramus lesion that could not be
intervened upon at time of last cath 09/15/2024. For now will manage as a nonischemic myocardial injury Troponin elevation due to acute HF.
-Patient has a [employer] FREIGHT RATE SPECIALIST�D in place. OptiVol started trending up at the beginning of January. He is greater than 10 years of battery longevity. No arrhythmia noted.
[2025-01-28] MEDS: BRILINTA 60 MG PO ×2 (08:41→20:26)
[2025-01-28] MEDS: LASIX 40 MG IV (08:41)
[2025-01-28] MEDS: MUCINEX 600 MG PO ×2 (08:41→20:26)
[2025-01-28] MEDS: ALPHAGAN 0.2% EYE DROPS 1 DROP OPHTH ×2 (08:42→20:28)
[2025-01-28] MEDS: TIMOPTIC 0.5% OPHTHALMIC SOLUTION 1 DROP OPHTH ×2 (08:42→20:29)
[2025-01-28] MEDS: IMDUR (EXTENDED RELEASE) 30 MG PO (08:42)
[2025-01-28] MEDS: COREG 3.125 MG PO (08:42)
[2025-01-28] MEDS: ASPIR LOW (ENTERIC COATED) 81 MG PO (08:42)
--- NOTE | 2025-01-28 14:36 | W.PN.HOSP.TC ---
Today's Communication/Plan
-
abx
IV diuresis
wean O2
Assessment / Plan
Assessment / Plan
71 8MW/CAD (CABG 1984, PCI 2015), HFrEF 25-30% status post BiV ICD implantation (12/02), essential HTN, HLD, CKD III, abdominal aortic aneurysm s/p endovascular aortic repair 2018, bilateral carotid stenosis s/p bilateral carotid endarterectomies,
PAD s/p left femoral endarterectomy 2018, RLE stenting, GERD, BPH p/w cough and shortness of breath.
Acute hypoxic RF
-in setting of heart failure exacerbation and suspected pneumonia
-O2 support as needed
Wean off
Heart Failure reduced Ejection Fraction, Acute Exacerbation
s/p BiV ICD 12/02
-patient is not on standing Lasix at home
-continue Lasix 40mg IV daily can change to twice daily
-strict I/O, daily weights
-Cardiology consulted appreciate management
Pneumonia
empiric ceftriaxone/azithromycuin
Elevated Troponin, suspect non-ischemic myocardial injury in setting of pneumonia and heart failure
-continue home medications (see below)
-trended Troponin to peak
-Cardiology consult as above
Coronary Artery Disease
-s/p CABG 1984, PCI f2016
-FRAMING CARPENTER cardiac regimen:
Aspirin 81mg PO QD
Brilinta 60mg PO BID
Imdur 30mg PO QD
Coreg 3.125mg PO BID
Lipitor 40mg qhs
-FRAMING CARPENTER Ezetimibe 5mg PO qhs
GERD
BPH
Anxiety - FRAMING CARPENTER Venlafaxine
DVT PPx Lovenox
FULL CODE
Anticipated Discharge: 24 - 48 hours
Subjective/Interval History
-
Date of Service: January 28, 2025
Patient still feeling orthopnea, his cough is improved
Objective Data
-
Labs:
Laboratory Results
01/28/25
05:20
WBC 11.2 H
Hgb 12.9 L
Hct 38.5 L
Plt Count 343
Sodium 142
Potassium 4.1
Chloride 107
Carbon Dioxide 27
BUN 37 H
Creatinine 1.3
Glucose 123 H
Calcium 9.2
Total Bilirubin 0.9
AST 27
ALT 22
Alkaline Phosphatase 80
Vital Signs:
Vital Signs
Temp Pulse Resp BP Pulse Ox
98.2 F 82 18 114/67 95
01/28/25 11:20 01/28/25 11:20 01/28/25 11:20 01/28/25 11:20 01/28/25 11:20
I&O
01/27/25 01/28/25 01/29/25
06:59 06:59 06:59
Intake Total 1167 / 1167
Output Total 700 / 700
Balance 467 / 467
Review of Systems
-
All other systems: Reviewed and negative
Physical Exam
-
General: No Apparent Distress
HEENT: Moist Mucous Membranes, Anicteric and PERRLA
Respiratory: Clear to Auscultation; Negative Wheezes, Rales or Rhonchi
Cardiac: Regular Rhythm and S1/S2; Negative Murmur, Rub or Gallop
GI: Soft, Nontender, Nondistended and Normal Bowel Sounds
Musculoskeletal: No Edema
Skin: Warm and Dry; Negative Rash, Ulcers or Lesions
Neuro: Awake and AO x 3
Hematologic / Lymphatic: No Lymphadenopathy
Psych: Calm
Data Reviewed
-
Diagnostic Radiology: Report Reviewed by me and Discussed with Patient
Labs: Labs Reviewed by me and Discussed with Patient
[2025-01-28] MEDS: ZITHROMAX 500 MG PO (16:35)
[2025-01-28] MEDS: VIBRAMYCIN 100 MG PO (17:57)
[2025-01-28] MEDS: LOVENOX 40 MG SC (17:57)
[2025-01-28] MEDS: ZETIA 5 MG PO (17:57)
[2025-01-28] MEDS: LIPITOR 40 MG PO (17:58)
[2025-01-28] MEDS: STERILE WATER FOR INJECTION 10 ML IV (17:58)
[2025-01-28] MEDS: ROCEPHIN 1000 MG IV (17:58)
[2025-01-28] MEDS: EFFEXOR XR 150 MG PO (20:26)
[2025-01-28] MEDS: COREG 6.25 MG PO (20:27)
[2025-01-28] MEDS: EFFEXOR XR 75 MG PO (20:27)
--- NOTE | 2025-01-28 22:34 | PTCARENOTE ---
Pt was noted to have a run of 7 beats VT while in the room with the pt. Pt denied any discomfort or change in status. VS taken and stable as charted. FOREST PATHOLOGIST notified and entered lab orders for the AM. No s/s of distress assessed. Will continue to
monitor.
[2025-01-29 03:48] VITALS: BP 145/77
[2025-01-29] MEDS: VIBRAMYCIN 100 MG PO (05:22)
[2025-01-29 06:00] VITALS: BMI 24.9
[2025-01-29 07:00] VITALS: BP 154/81
[2025-01-29 07:29] LABS: Hematocrit 37.9 % (39.0-52.0); Hemoglobin 12.4 g/dL (13.0-18.0); Mean Corp Hgb Conc. 32.7 g/dL (33.0-37.0); Mean Corpuscular Volume 92.0 fL (80.0-94.0); Platelet Count 333 10^3/uL (130-400); Red Cell Dist. Width 13.9 % (11.5-14.5)
[2025-01-29 07:57] LABS: Blood Urea Nitrogen 37 mg/dl (9-20); Calcium 9.0 mg/dl (8.4-10.2); Carbon Dioxide 25 mmol/L (22-30); Chloride 105 mmol/L (98-107); Estimated Creatinine Clearance 49 ml/min; Glucose 132 mg/dl (70-99); Magnesium 2.1 mg/dl (1.6-2.3); Potassium 4.2 mmol/L (3.5-5.1); Sodium 140 mmol/L (135-145); eGFR > 60.00
[2025-01-29] MEDS: TIMOPTIC 0.5% OPHTHALMIC SOLUTION 1 DROP OPHTH ×2 (08:02→19:51)
[2025-01-29] MEDS: ALPHAGAN 0.2% EYE DROPS 1 DROP OPHTH ×2 (08:02→19:51)
[2025-01-29] MEDS: IMDUR (EXTENDED RELEASE) 30 MG PO (08:03)
[2025-01-29] MEDS: MUCINEX 600 MG PO ×2 (08:03→19:45)
[2025-01-29] MEDS: ZITHROMAX 500 MG PO (08:03)
[2025-01-29] MEDS: ASPIR LOW (ENTERIC COATED) 81 MG PO (08:03)
[2025-01-29] MEDS: BRILINTA 60 MG PO ×2 (08:03→19:45)
[2025-01-29] MEDS: COREG 6.25 MG PO ×2 (08:04→19:50)
[2025-01-29] MEDS: FARXIGA 10 MG PO (08:04)
[2025-01-29] MEDS: LASIX 40 MG IV ×2 (08:04→19:45)
[2025-01-29] MEDS: FLUSH (NSS) 1 FLUSH IV ×2 (08:04→17:19)
--- NOTE | 2025-01-29 08:51 | W.PN.HOSP.TC ---
Today's Communication/Plan
-
echo now shows mod-severe MR, will f/u cards recs
continue abx
IV diuresis, increased to BID
weaned off O2
Assessment / Plan
Assessment / Plan
79M w/CAD (CABG 1984, PCI 2015), HFrEF 25-30% status post BiV ICD implantation (12/02), essential HTN, HLD, CKD III, abdominal aortic aneurysm s/p endovascular aortic repair 2018, bilateral carotid stenosis s/p bilateral carotid endarterectomies,
PAD s/p left femoral endarterectomy 2018, RLE stenting, GERD, BPH p/w cough and shortness of breath.
Acute hypoxic RF
-in setting of heart failure exacerbation and suspected pneumonia
-O2 support as needed
Weaned off
Heart Failure reduced Ejection Fraction, systolic, Acute Exacerbation
Mod-Severe MR
s/p BiV ICD 12/02
-patient is not on standing Lasix at home
-continue Lasix 40mg IV BID
-strict I/O, daily weights
-Cardiology consulted appreciate management, adding farxiga
echo shows EF 20-25% with mod to severe MR
Pneumonia
empiric ceftriaxone/azithromycin
Elevated Troponin, suspect non-ischemic myocardial injury in setting of pneumonia and heart failure
-continue home medications (see below)
-trended Troponin to peak
-Cardiology consult as above
Coronary Artery Disease
-s/p CABG 1984, PCI f201
-PASTOR cardiac regimen:
Aspirin 81mg PO QD
Brilinta 60mg PO BID
Imdur 30mg PO QD
Coreg 3.125mg PO BID
Lipitor 40mg qhs
-PASTOR Ezetimibe 5mg PO qhs
GERD
BPH
Anxiety - PASTOR Venlafaxine
DVT PPx Lovenox
FULL CODE
Anticipated Discharge: Within 24 hours
Subjective/Interval History
-
Date of Service: January 29, 2025
Feeling better, not wearing O2 at the moment.
Objective Data
-
Labs:
Laboratory Results
01/29/25
06:35
WBC 11.9 H
Hgb 12.4 L
Hct 37.9 L
Plt Count 333
Sodium 140
Potassium 4.2
Chloride 105
Carbon Dioxide 25
BUN 37 H
Creatinine 1.2
Glucose 132 H
Calcium 9.0
Vital Signs:
Vital Signs
Temp Pulse Resp BP Pulse Ox
98 F 85 16 154/81 96
01/29/25 07:00 01/29/25 08:04 01/29/25 07:00 01/29/25 08:04 01/29/25 08:01
I&O
01/28/25 01/29/25 01/30/25
06:59 06:59 06:59
Intake Total 1167 / 1167 780 / 780
Output Total 700 / 700 1025 / 1025 250 / 250
Balance 467 / 467 -245 / -245 -250 / -250
Review of Systems
-
All other systems: Reviewed and negative
Physical Exam
-
General: No Apparent Distress
HEENT: Moist Mucous Membranes, Anicteric and PERRLA
Respiratory: Clear to Auscultation; Negative Wheezes, Rales or Rhonchi
Cardiac: Regular Rhythm, S1/S2 and Murmur; Negative Rub or Gallop
GI: Soft, Nontender, Nondistended and Normal Bowel Sounds
Musculoskeletal: No Edema
Skin: Warm and Dry; Negative Rash, Ulcers or Lesions
Neuro: Awake and AO x 3
Hematologic / Lymphatic: No Lymphadenopathy
Psych: Calm
Data Reviewed
-
Diagnostic Radiology: Report Reviewed by me
Ultrasound: Report Reviewed by me
Labs: Labs Reviewed by me and Discussed with Patient
[2025-01-29 11:00] VITALS: BP 113/56
[2025-01-29 11:48] VITALS: BMI 24.9
--- NOTE | 2025-01-29 12:44 | W.PN.CARDCBS ---
Addendum entered and electronically signed by Greg Hoffman MD 01/29/25 15:12:
I saw and examined the patient.
The Transmission Design Engineer's note was reviewed and I agree with the note.
Comment:
GEN: No distress, awake, Ox3
HEENT: supple, anicteric, mmm
LUNGS: CTA, no wheezes/rales
CV: Reg, S1/S2, 1/6 syst LSB, no gallop
ABD: soft, BS+, NT/ND
EXT: No edema
NEURO: Gross non-focal
SKIN: No rash
PLan:
Diuresing some but still remains somewhat volume overloaded. Increase Lasix to 40 mg IV twice daily. Continue Farxiga.
Continue Coreg and Imdur.
Troponins have trended down. I reviewed his previous catheterization earlier this year with interventional cardiology. There are no optimal interventional targets. With no chest pain's will continue to attempt to treat him medically and diurese.
He has no chest pains.
Continue medical therapy for CAD. Continue Imdur, Coreg, aspirin, Brilinta, atorvastatin, and Zetia.
Has not tolerated DELIA/ARB/already due to renal sufficiency
Original Note:
Today's Communication / Plan
-
Increase Lasix to 40 mg IV twice daily
New to [facility]
Echo showed improved EF now 38%, previously 20-25 continue efforts of GDMT
Impression / Plan
-
PCP: Brandi Tran MD
CDY: Nahun Isidro MD
Impression:
Admitted with acute HFrEF 01/27/2025
Acute HFrEF, proBNP 14,200
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
s/p Med[employer]onic CORE COMPOSER MACHINE TENDER�D 12/02/24
Elevated troponin, peak 1.36
CAD
s/p CABG (1984)
Left main PCI (2015)
s/p cardiac cath with iFR negative RCA, 3 patent grafts severe stenosis in the ramus that was unable to be intervened on and will be managed medically 09/15/24
CKD3a
HTN
Hyperlipidemia
AAA, s/p EVAR (2018)
B/L Carotid artery stenosis, s/p bilateral carotid endarterectomies
PAD, s/p Left Femoral endarterectomy (2018) and prior RLE stenting
Left retinal occlusion with blindness/glaucoma
GERD
BPH
Echo 01/28/2025: EF 38%. Moderately diminished right ventricular function. Moderate to severe MR. Mild to moderate TR. PAP 43 mmHg
Echo 09/09/2024: EF 25 to 30%, mild to moderate MR, moderate TR with mild PHTN and PAP 40 mmHg
Plan:
-Presented 01/27/2025 with-with shortness of breath, fatigue, and orthopnea. Found to have acute heart failure exacerbation with reduced ejection fraction, proBNP 14,000, 200
- Patient reports symptomatic improvement oxygen has been weaned as of early afternoon. Resting comfortably in bed. Admits she has not been ambulating much.
- Weight only down 1 lb since admission with Lasix 40 mg IV daily. Given poor response will increase Lasix to 40 mg IV twice daily. Patient was not taking a diuretic prior to admission.
- Echo reviewed this admission with improvement in LVEF to 38% but still with moderate to severe MR. Prior EF was 25 to 30% by echo 09/09/2024
- Coreg increased to 6.25 mg twice a day this admission in effort to optimize GDMT
- Patient is not chronically on DELIA/ARB/ARNI due to previous intolerance with ELEAZAR and hypotension
- Patient is not chronically on aldosterone antagonist due to previous intolerance with ELEAZAR and hypotension
- Farxiga 10 mg daily added this admission
- Troponin peaked at 1.36, but no chest pain. ECG is nondiagnostic due to paced rhythm. Echo with improved ejection fraction can prior to echo 4 months ago. Patient had patent grafts, negative IFR assessment of an RCA lesion, but also ramus lesion
that could not be intervened upon at time of last cath 09/15/2024. For now will manage as a nonischemic myocardial injury Troponin elevation due to acute HF.
-Lipids TC 114, HDL 35, LDL 65, triglycerides 74 continue atorvastatin
-Patient has a Medtronic CORE COMPOSER MACHINE TENDER�D in place. OptiVol started trending up at the beginning of January. He is greater than 10 years of battery longevity. No arrhythmia noted.
HPI 01/29/2025:
Patient came to the ER yesterday with symptoms of orthopnea and TOUSSAINT and was admitted with acute HFrEF and cardiology is now consulted. Patient generally follows with Dr. Treviño at [facility] but has had cardiac testing recently here at [facility] due
to worsening EF. Patient has a history of remote CABG in 1984 and then had left main PCI in 2015. He underwent repeat cardiac cath on 09/15/2024 that showed patent grafts and an IFR assessment of his RCA lesion was negative, there was also evidence
of a ramus lesion that could not be intervened on and was managed medically. Patient eventually had Medtronic CORE COMPOSER MACHINE TENDER�D 12/02/24. Despite CM the patient is not chronically on loop diuretic. Patient feels that for the last 2 weeks he has had increasing
SOB and his biggest symptom is orthopnea, he has not slept due to his orthopnea symptoms. Patient noticed increased bloating over the last few days, but interestingly no LE edema. He went to the urgent care and was then referred to the ER
yesterday where he was admitted with acute HF.
Progress Note - Feed Weigher
Subjective
Date of Service: January 29, 2025
Patient seen and examined. Patient resting comfortably sitting in bed reading. Now off oxygen. Denies chest pain or shortness of breath
Objective
Labs:
01/29/25 06:35
01/29/25 06:35
Labs
Hgb 12.4 g/dL (13.0-18.0) L 01/29/25 06:35
Hct 37.9 % (39.0-52.0) L 01/29/25 06:35
Plt Count 333 10^3/uL (130-400) 01/29/25 06:35
PT 14.6 Sec (11.4-14.6) 01/27/25 15:46
INR 1.08 01/27/25 15:46
APTT 32.5 Sec (23.4-35.0) 01/27/25 15:46
Sodium 140 mmol/L (135-145) 01/29/25 06:35
Potassium 4.2 mmol/L (3.5-5.1) 01/29/25 06:35
BUN 37 mg/dl (9-20) H 01/29/25 06:35
Creatinine 1.2 mg/dL (0.7-1.3) 01/29/25 06:35
Glucose 132 mg/dl (70-99) H 01/29/25 06:35
Troponins
01/27/25 01/27/25 01/27/25
15:46 18:13 23:14
Troponin I 1.140 H* 1.360 H* 1.180 H*
01/28/25
05:20
Troponin I 0.875 H* D
Vital Signs and I&O:
Vital Signs
Temp Pulse Resp BP Pulse Ox
97.9 F 73 16 113/56 97
01/29/25 11:00 01/29/25 11:00 01/29/25 11:00 01/29/25 11:00 01/29/25 11:00
Vital Signs
Temp Pulse Resp BP Pulse Ox
97.9 F 73 16 113/56 97
01/29/25 11:00 01/29/25 11:00 01/29/25 11:00 01/29/25 11:00 01/29/25 11:00
Intake & Output
01/27/25 01/28/25 01/29/25 01/30/25
06:59 06:59 06:59 06:59
Intake Total 1167 / 1167 780 / 780
Output Total 700 / 700 1025 / 1025 250 / 250
Balance 467 / 467 -245 / -245 -250 / -250
Physical Exam
Physical Exam
GEN: No distress, awake, Ox3, sitting in bed off oxygen
HEENT: supple, anicteric, mmm
LUNGS: Fine crackles at right base, mildly decreased at left base CTA, no wheezes/rales
CV: Reg, S1/S2, 2/6 systolic murmur loudest at apex
ABD: soft, BS+, NT/ND
EXT: No edema, clubbing or cyanosis
NEURO: Gross non-focal
SKIN: No rash, warm, dry, pink
--- NOTE | 2025-01-29 14:44 | CM ---
Cost of Farxiga verified with [facility] pharmacy- $115.61, TT to ADDI.
[2025-01-29 15:00] VITALS: BP 132/69
--- NOTE | 2025-01-29 15:13 | CM ---
Patient seen bedside.
IA completed.
Patient lives with spouse in a 2 story home with 2 steps to enter.
Bed and bath second floor.
Independent prior to admission.
Ambulates without assistive devices unless its far distances then may use a cane.
Patient does not drive anymore.
Spouse will transport home.
Medication cost reviewed with patient.
IMM reviewed and signed.
Per patient, possible d/c this weekend.
PCP: Dr Brandi Tran
Pharmacy: [facility]
Plan: home no needs.
--- NOTE | 2025-01-29 16:47 | PTCARENOTE ---
Pt AAO x3, LEON well, OOB to BR; denies weakness/dizziness. VSS. Telemetry: V-paced rhythm. Currently on room air- pulse ox 95%, pt with (+) slight TOUSSAINT; denies SOB. Abd soft, rounded, david PO well. Voiding clear yellow urine in urinal; occ voids
in BR. Resting in bed at present. Will continue to monitor.
[2025-01-29] MEDS: LIPITOR 40 MG PO (17:17)
[2025-01-29] MEDS: LOVENOX 40 MG SC (17:17)
[2025-01-29] MEDS: ZETIA 5 MG PO (17:18)
[2025-01-29] MEDS: STERILE WATER FOR INJECTION 10 ML IV (17:19)
[2025-01-29] MEDS: ROCEPHIN 1000 MG IV (17:19)
[2025-01-29 19:45] VITALS: BP 133/62
[2025-01-29] MEDS: EFFEXOR XR 75 MG PO (19:53)
[2025-01-29] MEDS: EFFEXOR XR 150 MG PO (19:54)
[2025-01-29] MEDS: MELATONIN 5 MG PO (23:49)
[2025-01-29 23:51] VITALS: BP 146/77
[2025-01-30 03:15] VITALS: BP 132/66
[2025-01-30 06:00] VITALS: BMI 24.2
[2025-01-30 07:50] VITALS: BP 147/78
[2025-01-30 08:48] LABS: Blood Urea Nitrogen 42 mg/dl (9-20); Calcium 9.3 mg/dl (8.4-10.2); Carbon Dioxide 25 mmol/L (22-30); Chloride 102 mmol/L (98-107); Estimated Creatinine Clearance 42 ml/min; Glucose 136 mg/dl (70-99); Potassium 4.2 mmol/L (3.5-5.1); Sodium 140 mmol/L (135-145); eGFR 51.45
--- NOTE | 2025-01-30 09:02 | W.PN.CARDCBS ---
Today's Communication / Plan
-
Hold lasix
Monior cr
Impression / Plan
-
.
PCP: Brandi Tran MD
CDY: Nahun Isidro MD
Impression:
Admitted with acute HFrEF 01/27/2025
Acute HFrEF, proBNP 14,200
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
s/p Med[employer]onic HOSPITALITY SPECIALIST�D 12/02/24
Elevated troponin, peak 1.36
CAD
s/p CABG (1984)
Left main PCI (2015)
s/p cardiac cath with iFR negative RCA, 3 patent grafts severe stenosis in the ramus that was unable to be intervened on and will be managed medically 09/15/24
CKD3a
HTN
Hyperlipidemia
AAA, s/p EVAR (2017)
B/L Carotid artery stenosis, s/p bilateral carotid endarterectomies
PAD, s/p Left Femoral endarterectomy (2017) and prior RLE stenting
Left retinal occlusion with blindness/glaucoma
GERD
BPH
Echo 01/28/2025: EF 38%. Moderately diminished right ventricular function. Moderate to severe MR. Mild to moderate TR. PAP 43 mmHg
Echo 09/09/2024: EF 25 to 30%, mild to moderate MR, moderate TR with mild PHTN and PAP 40 mmHg
Plan:
-Presented 01/27/2025 with-with shortness of breath, fatigue, and orthopnea. Found to have acute heart failure exacerbation with reduced ejection fraction, proBNP 14,200
Wt came down 5 lbs if accurate over last 24 hrs but now cr rising.
Cr 1.4. Will hold on further diuresis and monitor cr, check in AM
If cr improved likely can d/c from cardiac standpoint.
He has MRI this Feb 02 he states.
Cont Farxiga, Coreg and Imdur
Troponins have trended down. Previous catheterization earlier this year was reviewed with interventional cardiology and there are no optimal interventional targets.
Cont medical therapy with no cp and improved with diuresis
Continue medical therapy for CAD. Continue Imdur, Coreg, aspirin, Brilinta, atorvastatin, and Zetia.
Has not tolerated DELIA/ARB/already due to renal sufficiency
Echo overall stable. with improvement in LVEF to 38%, still with moderate to severe MR. Prior EF was 25 to 30% by echo 09/09/2024
Patient has a [employer]tronic HOSPITALITY SPECIALIST�D in place. OptiVol started trending up at the beginning of January. He is greater than 10 years of battery longevity. No arrhythmia noted.
HPI 01/29/2025:
Patient came to the ER yesterday with symptoms of orthopnea and TOUSSAINT and was admitted with acute HFrEF and cardiology is now consulted. Patient generally follows with Dr. Treviño at [facility] but has had cardiac testing recently here at [facility] due
to worsening EF. Patient has a history of remote CABG in 1984 and then had left main PCI in 2015. He underwent repeat cardiac cath on 09/15/2024 that showed patent grafts and an IFR assessment of his RCA lesion was negative, there was also evidence
of a ramus lesion that could not be intervened on and was managed medically. Patient eventually had Med[employer] HOSPITALITY SPECIALIST�D 12/02/24. Despite CM the patient is not chronically on loop diuretic. Patient feels that for the last 2 weeks he has had increasing
SOB and his biggest symptom is orthopnea, he has not slept due to his orthopnea symptoms. Patient noticed increased bloating over the last few days, but interestingly no LE edema. He went to the urgent care and was then referred to the ER
yesterday where he was admitted with acute HF.
Progress Note - Range Mounter
Subjective
Date of Service: January 30, 2025
Pt seen and examined. Feels well. no complaints.
Objective
Labs:
01/29/25 06:35
01/30/25 07:19
Labs
Hgb 12.4 g/dL (13.0-18.0) L 01/29/25 06:35
Hct 37.9 % (39.0-52.0) L 01/29/25 06:35
Plt Count 333 10^3/uL (130-400) 01/29/25 06:35
PT 14.6 Sec (11.4-14.6) 01/27/25 15:46
INR 1.08 01/27/25 15:46
APTT 32.5 Sec (23.4-35.0) 01/27/25 15:46
Sodium 140 mmol/L (135-145) 01/30/25 07:19
Potassium 4.2 mmol/L (3.5-5.1) 01/30/25 07:19
BUN 42 mg/dl (9-20) H 01/30/25 07:19
Creatinine 1.4 mg/dL (0.7-1.3) H 01/30/25 07:19
Glucose 136 mg/dl (70-99) H 01/30/25 07:19
Troponins
01/27/25 01/27/25 01/27/25
15:46 18:13 23:14
Troponin I 1.140 H* 1.360 H* 1.180 H*
01/28/25
05:20
Troponin I 0.875 H* D
Vital Signs and I&O:
Vital Signs
Temp Pulse Resp BP Pulse Ox
97.8 F 64 18 147/78 96
01/30/25 07:50 01/30/25 07:50 01/30/25 07:50 01/30/25 07:50 01/30/25 07:50
Vital Signs
Temp Pulse Resp BP Pulse Ox
97.8 F 64 18 147/78 96
01/30/25 07:50 01/30/25 07:50 01/30/25 07:50 01/30/25 07:50 01/30/25 07:50
Intake & Output
01/28/25 01/29/25 01/30/25 01/31/25
06:59 06:59 06:59 06:59
Intake Total 1167 / 1167 780 / 780 1020 / 1020
Output Total 700 / 700 1025 / 1025 1150 / 1150
Balance 467 / 467 -245 / -245 -130 / -130
Physical Exam
Physical Exam
General: No acute distress, AAOX3
Neck: Negative JVD
Heart: Regular, Negative S3 positive S1/S2, Negative S4, No murmur
Lungs: CTA b/l, negative wheezes/rales/rhonchi
Abd: Positive BS, NT/ND, neg rebound/rigidity/guarding
Ext: Negative cyanosis/clubbing/edema
Neuro: nonfocal
[2025-01-30] MEDS: BRILINTA 60 MG PO (09:19)
[2025-01-30] MEDS: ZITHROMAX 500 MG PO (09:19)
[2025-01-30] MEDS: MUCINEX 600 MG PO (09:19)
[2025-01-30] MEDS: FARXIGA 10 MG PO (09:19)
[2025-01-30] MEDS: ASPIR LOW (ENTERIC COATED) 81 MG PO (09:19)
[2025-01-30] MEDS: COREG 6.25 MG PO (09:19)
[2025-01-30] MEDS: IMDUR (EXTENDED RELEASE) 30 MG PO (09:19)
[2025-01-30] MEDS: LASIX IV (09:19)
[2025-01-30] MEDS: ALPHAGAN 0.2% EYE DROPS 1 DROP OPHTH (09:20)
[2025-01-30] MEDS: TIMOPTIC 0.5% OPHTHALMIC SOLUTION 1 DROP OPHTH (09:20)
--- NOTE | 2025-01-30 09:25 | W.PN.HOSP.TC ---
Today's Communication/Plan
-
monitor cr off lasix check again now and if improved consider d/c home today
change abx to oral
Assessment / Plan
Assessment / Plan
79M w/CAD (CABG 1984, PCI 2015), HFrEF 25-30% status post BiV ICD implantation (12/02), essential HTN, HLD, CKD III, abdominal aortic aneurysm s/p endovascular aortic repair 2018, bilateral carotid stenosis s/p bilateral carotid endarterectomies,
PAD s/p left femoral endarterectomy 2018, RLE stenting, GERD, BPH p/w cough and shortness of breath.
Acute hypoxic RF resolved
-in setting of heart failure exacerbation and suspected pneumonia
-O2 support as needed
Weaned off
Heart Failure reduced Ejection Fraction, systolic, Acute Exacerbation resolved
Mod-Severe MR
s/p BiV ICD 12/02
-patient is not on standing Lasix at home
-s/p Lasix 40mg IV BID , now held for elevated Cr. monitor repeat Cr now, if improved will consider d/c home today
-strict I/O, daily weights
-Cardiology consulted appreciate management, adding farxiga
echo shows EF 20-25% with mod to severe MR
Pneumonia
empiric ceftriaxone - change to oral augmentin on dc
cont azithromycin
Elevated Troponin, suspect non-ischemic myocardial injury in setting of pneumonia and heart failure
-continue home medications (see below)
-trended Troponin to peak
-Cardiology consult as above
Coronary Artery Disease
-s/p CABG 1984, PCI f2016
-[employer] cardiac regimen:
Aspirin 81mg PO QD
Brilinta 60mg PO BID
Imdur 30mg PO QD
Coreg 3.125mg PO BID
Lipitor 40mg qhs
-[facility] Ezetimibe 5mg PO qhs
GERD
BPH
Anxiety - [facility] Venlafaxine
DVT PPx Lovenox
FULL CODE
Anticipated Discharge: Within 24 hours
Subjective/Interval History
-
Date of Service: January 30, 2025
Pt feeling well and wishes to go home
Objective Data
-
Labs:
Laboratory Results
01/30/25
07:19
Sodium 140
Potassium 4.2
Chloride 102
Carbon Dioxide 25
BUN 42 H
Creatinine 1.4 H
Glucose 136 H
Calcium 9.3
Vital Signs:
Vital Signs
Temp Pulse Resp BP Pulse Ox
97.8 F 64 18 147/78 96
01/30/25 07:50 01/30/25 07:50 01/30/25 07:50 01/30/25 07:50 01/30/25 07:50
I&O
01/29/25 01/30/25 01/31/25
06:59 06:59 06:59
Intake Total 780 / 780 1020 / 1020
Output Total 1025 / 1025 1150 / 1150
Balance -245 / -245 -130 / -130
Review of Systems
-
All other systems: Reviewed and negative
Physical Exam
-
General: No Apparent Distress
HEENT: Moist Mucous Membranes, Anicteric and PERRLA
Respiratory: Clear to Auscultation; Negative Wheezes, Rales or Rhonchi
Cardiac: Regular Rhythm, S1/S2 and Murmur; Negative Rub or Gallop
GI: Soft, Nontender, Nondistended and Normal Bowel Sounds
Musculoskeletal: No Edema
Skin: Warm and Dry; Negative Rash, Ulcers or Lesions
Neuro: Awake and AO x 3
Hematologic / Lymphatic: No Lymphadenopathy
Psych: Calm
Data Reviewed
-
Diagnostic Radiology: Report Reviewed by me
Ultrasound: Report Reviewed by me
Labs: Labs Reviewed by me and Discussed with Patient
[2025-01-30 11:20] VITALS: BP 130/71
[2025-01-30 12:24] LABS: Blood Urea Nitrogen 43 mg/dl (9-20); Calcium 9.5 mg/dl (8.4-10.2); Carbon Dioxide 27 mmol/L (22-30); Chloride 102 mmol/L (98-107); Estimated Creatinine Clearance 45 ml/min; Glucose 128 mg/dl (70-99); Potassium 4.2 mmol/L (3.5-5.1); Sodium 139 mmol/L (135-145); eGFR 56.23
--- NOTE | 2025-01-30 12:29 | PTCARENOTE ---
Pt had a 13 beat run of VT on the tele monitor. Pt was sitting in a chair. Asymptomatic. Dr Reyna and Goldie made aware. No new orders at this time.
[2025-01-30 15:40] VITALS: BP 126/69
--- NOTE | 2025-01-30 16:42 | CM ---
Met with patient/
IMM signed. In chart
PLAN: Home, no needs
to transport
--- NOTE | 2025-01-31 14:10 | W.DCSUMMARY ---
Discharge Summary
Discharge Data
Date of Admission: 01/27/25
Date of Discharge: 01/31/25
Total time spent discharging patient (in min): 31
-
Pending Results: No
Hospital Course
Attending physician on day of discharge:
Ju Reyna MD
Admission diagnosis:
Acute hypoxic respiratory insufficiency
Discharge diagnosis:
Pneumonia
Acute exacerbation of CHF
Secondary diagnoses:
Mitral regurgitation
CAD
GERD
BPH
Anxiety
Consultations:
Cardiology
Procedures:
None
Hospital course:
79 yo man with hx CAD (CABG 1984, PCI 2015), HFrEF 25-30% status post BiV ICD implantation (12/02), essential HTN, HLD, CKD III, abdominal aortic aneurysm s/p endovascular aortic repair 2018, bilateral carotid stensois s/p bilateral carotid
endarterectomies, PAD s/p left femoral endarterectomy 2018, RLE stenting, GERD, BPH presented with cough and shortness of breath. He was found to have acute exacerbation of CHF and was treated with IV Lasix. He was also treated for
community-acquired pneumonia with ceftriaxone and azithromycin, this was changed to oral Augmentin on DC. Cardiology was consulted for his CHF, and they helped manage his diuresis, and optimized his GDMT. He had elevated troponin which
downtrended, no ischemia noted on EKG. He had echo as well which showed moderate to severe mitral regurg. He was weaned entirely off of oxygen. His creatinine went up to 1.4, but on repeat it was 1.3 so he was discharged with outpatient
cardiology follow-up.
Physical exam on discharge:
Gen: NAD
HEENT: PERRLA, EOMI, MMM, neck supple
Cards: RRR, no M/G/R
Resp: Lungs CTAB, no W/R/R
GI: soft, NT/ND/NABS
MSK: No edema
Skin: warm and dry, no rash, ulcer or lesions
Heme: No LAD
Psych: Calm
Neuro: AAOx3
Discharge disposition:
Home
Discharge Plan
-
Patient Disposition: Home (Routine Discharge)
Discharge Diagnosis/Procedures: Heart Failure reduced Ejection Fraction,
Pneumonia
Condition: Fair
Diet: As tolerated
Activity: As tolerated
Driving Restrictions: As prior to admission
Referrals:
Brandi Tran MD [Family Provider, Internal Medicine] - in less than 1 week
Prescriptions:
New
dapagliflozin propanediol [Farxiga] 10 mg tablet
10 mg PO DAILY Qty: 30 6RF
amoxicillin-pot clavulanate 875-125 mg tablet
1 tab PO Q12H 5 Days Qty: 10 0RF
carvedilol 6.25 mg Tablet
6.25 mg PO BID Qty: 60 0RF
Continued
atorvastatin 40 mg Tablet
40 mg PO QPM
isosorbide mononitrate 30 mg Tablet Extended Release 24 Hr
30 mg PO DAILY
aspirin 81 mg Tablet,Delayed Release (Dr/Ec)
81 mg PO DAILY
vitamin B complex Tablet
1 tab PO QPM
brimonidine-timolol [Combigan] 0.2-0.5 % Drops
1 drp BOTH EYES BID
ticagrelor [Brilinta] 60 mg Tablet
60 mg PO BID
venlafaxine 150 mg Capsule,Extended Release 24hr
150 mg PO HS
ezetimibe 10 mg Tablet
5 mg PO QPM
coenzyme Q10 [Co Q-10] 200 mg Capsule
200 mg PO QPM
acetaminophen [Tylenol] 325 mg Tablet
650 mg PO Q6HPRN PRN (Reason: mild pain)
therapeutic multivitamin Tablet
1 tab PO QPM
calcium carbonate [Tums] 200 mg calcium (500 mg) Tablet,Chewable
200 mg PO BIDPRN PRN (Reason: gerd)
venlafaxine [Effexor XR] 75 mg Capsule,Extended Release 24hr
75 mg PO HS
Discontinued
carvedilol 3.125 mg Tablet
3.125 mg PO BID
Discharge Orders:
Discharge Patient (As Directed); Ordered 01/30/25
Ordered By: Tess Nunes
Discharge Date and Time
Discharge Date/Time: 01/30/25 16:50
Print Language: SLOVAK
== END 2025-01-30 16:50 | disposition home or self-care (01) | DRG 193 ==
LOC: 4 EAST ACU 19:10
PROVIDERS: Nurse Practitioner Family; ADMITTING PHYSICIAN Student in an Organized Health Care Education/Training Program; ATTENDING PHYSICIAN Internal Medicine; EMERGENCY PHYSICIAN Emergency Medicine; FAMILY PHYSICIAN Student in an Organized Health Care Education/Training Program; OTHER PHYSICIAN Internal Medicine Cardiovascular Disease
DX: J18.9 Pneumonia, unspecified organism (principal); I50.21 Acute systolic (congestive) heart failure; I13.0 Hypertensive heart and chronic kidney disease with heart failure and stage 1 through stage 4 chronic kidney disease, or unspecified chronic kidney disease; I5A Non-ischemic myocardial injury (non-traumatic); R09.02 Hypoxemia; E11.40 Type 2 diabetes mellitus with diabetic neuropathy, unspecified; E11.22 Type 2 diabetes mellitus with diabetic chronic kidney disease; E11.51 Type 2 diabetes mellitus with diabetic peripheral angiopathy without gangrene; E78.5 Hyperlipidemia, unspecified; F17.200 Nicotine dependence, unspecified, uncomplicated; F32.A Depression, unspecified; F41.9 Anxiety disorder, unspecified; I25.10 Atherosclerotic heart disease of native coronary artery without angina pectoris; I25.5 Ischemic cardiomyopathy; I27.20 Pulmonary hypertension, unspecified; I08.3 Combined rheumatic disorders of mitral, aortic and tricuspid valves; I09.89 Other specified rheumatic heart diseases; K64.9 Unspecified hemorrhoids; K21.9 Gastro-esophageal reflux disease without esophagitis; K57.30 Diverticulosis of large intestine without perforation or abscess without bleeding; N18.31 Chronic kidney disease, stage 3a; R79.89 Other specified abnormal findings of blood chemistry; N40.0 Benign prostatic hyperplasia without lower urinary tract symptoms; I25.2 Old myocardial infarction; Z11.52 Encounter for screening for COVID-19; Z79.899 Other long term (current) drug therapy; Z79.02 Long term (current) use of antithrombotics/antiplatelets; Z79.82 Long term (current) use of aspirin; Z79.84 Long term (current) use of oral hypoglycemic drugs; Z95.1 Presence of aortocoronary bypass graft; Z95.810 Presence of automatic (implantable) cardiac defibrillator
CPT/HCPCS: 71046; 80048; 80053; 80061; 82248; 83735; 83880; 84443; 84484; 85025; 85027; 85610; 85730; 87502; 87811; 93005; 93308; 94640; 96365; 96375; 99285

== ENCOUNTER → 2025-02-02 13:55 | Outpatient (REF) | payer MEDICARE, OTHER, SELFPAY | LOC: MRI 13:55 | PROVIDERS: ATTENDING PHYSICIAN Urology; FAMILY PHYSICIAN Student in an Organized Health Care Education/Training Program | DX: R97.20 Elevated prostate specific antigen [PSA] (principal) | CPT/HCPCS: 72197; 76014; 76015; A9575 ==

== ENCOUNTER 2025-03-02 18:44 | Inpatient (IN) | payer MEDICARE, OTHER, SELFPAY ==
[2025-03-02] VITALS (7 sets, daily range): BP systolic 92–142; BP diastolic 54–77; BMI 24.2
--- NOTE | 2025-03-02 18:03 | ED.GENMED ---
History of Present Illness
General
Chief Complaint: AICD Problem
Time Seen by Provider: 03/02/25 17:47
Nursing documentation reviewed up to this point in time: agreed with
History of Present Illness
History of Present Illness:
79-year-old male referred to the ER by cardiology in anticipation of revision of AICD tomorrow. Patient has been receiving inappropriate treatment. Cardiology, Dr. Ramos, referred to the patient to the ER for admission for treatment. Patient
reports feeling well. He states that his device has been making a sound of a [employer] car intermittently. He denies shortness of breath. He denies feeling any treatment. He denies chest pain or cough or cold symptoms. No peripheral edema.
He has been eating and drinking normally but has not had anything to eat today.
Past History
Past History
ED Past Medical History: None
ED Past Surgical History: Appendectomy
Social History
Tobacco: Smoker
Review of Systems
Review of Systems
Allergies reviewed?: Yes
Phy Exam
Physical Exam
Physical Exam:
Patient is awake, alert, appears in no acute distress, head is NCAT, PERRL, EOMI mucous membranes moist, conjunctiva pink, heart regular rate and rhythm without murmurs or ectopy, pacer present left anterior chest wall which is well-healed,
nontender, nonerythematous, lungs are clear to auscultation without wheezes rales or rhonchi, no JVD, abdomen is soft and nontender on palpation, extremities without edema, GCS is 15
Course
Orders/Labs/Results
Orders:
Orders
03/02/25 17:15
Electrocardiogram (*1) Urgent
Reason for Study: Other
Other Reason for Exam: ACID malfunction
03/02/25 17:16
EKG- Treatment ONCE
03/02/25 18:05
CR Chest - 2 Views Urgent
Comment:
Reason For Exam: device placement
03/02/25 18:08
Basic Metabolic Panel Urgent
Complete Blood Count/No Diff Urgent
PTT Urgent
Prothrombin Time Urgent
03/02/25 18:28
Admit/Transfer Patient As Directed
Co-Sign Provider:
Level of Care: Inpatient admission
Assign to:: Telemetry
Physician / Group: steve
Diagnosis: aicd malfunction
Reason for Telemetry: Arrhythmia
Date to Stop Telemetry: 03/05/25
Time to Stop Telemetry: 11:00
Reason for Hospitalization: aicd malfunction
Expected length of stay greater than two midnights?: Yes
ELOS- Estimated Length of Stay in days: 2
I certify the patient meets the requirements for IP care: Yes
03/02/25 18:30
Code Status As Directed
Resuscitation Status: Full Code
PRN Pain Medication Management As Directed
May give lesser potent ordered pain med per pt: Yes
preference::
Protocol:: Medication orders for pain may be administered in a
manner that supports deferring to patient preference
when the pt is:
- Requesting an ordered lesser potent pain medication.
Least to most potent pain medications are defined
as: acetaminophen < NSAID < tramadol < opioids
(morphine, oxycodone, hydromorphone).
- Requesting a lesser dose of the same medication IF
ORDERED.
- Requesting a less intrusive route of administration
if both routes are prescribed by the provider (PO <
IV).
03/05/25 11:00
DC Protocol for Telemetry ONCE
Abnormal Lab Results
03/02/25
18:08
RBC 4.52 L 10^6/uL
(4.70-6.10)
RDW 15.3 H %
(11.5-14.5)
BUN 38 H mg/dl
(9-20)
Creatinine 1.5 H mg/dL
(0.7-1.3)
03/02/25 18:08
03/02/25 18:08
Mild elevation in BUN and creatinine. CBC within normal limits.
Vital Signs
Initial and Last Documented VS:
Initial Vital Signs
Temp Pulse Resp BP Pulse Ox
98.4 F 68 18 142/77 100
03/02/25 17:08 03/02/25 17:08 03/02/25 17:08 03/02/25 17:08 03/02/25 17:08
Last Documented Vital Signs
Temp Pulse Resp BP Pulse Ox
98.4 F 73 19 110/54 97
03/02/25 17:08 03/02/25 20:00 03/02/25 20:00 03/02/25 20:00 03/02/25 19:45
MDM/Problems Addressed
Differential Diagnosis Includes:
Differential diagnosis to consider but not limited to inappropriate ICD activity, electrolyte dyscrasia, arrhythmia along with other etiologies considered
Chronic conditions affecting care:
Atherosclerosis status post bypass surgery, anxiety, renal insufficiency, former smoker
*Pulse Oximetry
SaO2: 100
Oxygen Mode of Delivery: Room air
Patient hypoxic: no
*Critical Care Note
Total Time (30-74mins, 75-104mins- exclusive of procedures): Not Applicable
Update Note
Update Note:
I reviewed with patient and plan as discussed with cardiology for admission for telemetry, placement of magnet over device, revision of device tomorrow. They agree with plan at current. I reviewed full patient presentation and cardiology
recommendations with the hospitalist who accepts patient for admission.
ED Attending Note
-
Portions of this chart may have been created with voice recognition software.� Occasional wrong word or��sound alike� substitutions may have occurred due to the inherent limitations of voice recognition software.
Discharge Plan
Departure
Patient Disposition: Admit
Date of Disposition: 03/02/25
Time of Disposition: 18:08
Presentation/result/management discussed w/ accepting MD/DO: Hospitalist
Discharge Problem:
AICD malfunction
Interventions
Interventions:
*Risk Screen - Suicide Last Done: 03/02/25 17:08
*General Assessment Last Done: 03/02/25 17:08
*Neglect/Abuse Screening Last Done: 03/02/25 17:08
*ED COVID-19 Vaccine History Last Done: 03/02/25 19:22
ED- Cardiac Assessment Last Done: 03/02/25 18:27
[2025-03-02 18:24] LABS: Hematocrit 42.0 % (39.0-52.0); Hemoglobin 13.9 g/dL (13.0-18.0); Mean Corp Hgb Conc. 33.1 g/dL (33.0-37.0); Mean Corpuscular Volume 92.9 fL (80.0-94.0); Platelet Count 250 10^3/uL (130-400); Red Cell Dist. Width 15.3 % (11.5-14.5)
[2025-03-02 18:32] LABS: APTT 30.9 Sec (23.4-35.0); INR 1.08; PT 14.3 Sec (11.4-14.6)
[2025-03-02 18:34] LABS: Blood Urea Nitrogen 38 mg/dl (9-20); Calcium 9.4 mg/dl (8.4-10.2); Carbon Dioxide 22 mmol/L (22-30); Chloride 104 mmol/L (98-107); Glucose 80 mg/dl (70-99); Potassium 4.7 mmol/L (3.5-5.1); Sodium 135 mmol/L (135-145); eGFR 47.36
--- NOTE | 2025-03-02 18:37 | HPS.HSE ---
Family Physician
-
Family Physician: Brandi Tran
Chief Complaint
-
aicd malfunction
History of Present Illness
79-year-old male past medical history of CAD status post CABG, HFrEF status post biventricular ICD placed in November, hypertension, hyperlipidemia, CKD 3, abdominal aortic aneurysm status post endovascular aortic repair in 2018, bilateral carotid
artery stenosis with bilateral carotid endarterectomies, PAD status post left femoral endarterectomy, GERD, BPH, presenting as referred by cardiology. His device has been making the beeping sound like burmese car. He was called by his emergency management coordinator
and told to come to the hospital for lead revision. He denies any symptoms. Denies shortness of breath. Denies chest pain or cough or cold symptoms. Denies edema. Eating and drinking normally but did not eat anything today. Denies dizziness.
Scheduled for revision of AICD tomorrow.
AICD was placed in November.
Denies smoking or alcohol.
Medical History
Past Medical History
Past Medical History: Reports Other (CAD status post CABG, HFrEF status post biventricular ICD placed in November, hypertension, hyperlipidemia, CKD 3, abdominal aortic aneurysm status post endovascular aortic repair in 2018, bilateral carotid artery
stenosis with bilateral carotid endarterectomies, PAD status post left femoral endarterect)
Past Surgical History: Reports None
Social History
Tobacco: Non-smoker
Alcohol: None
Drug: None
Family History
Family History: Not pertinent
Allergies / Home Medications
Allergies reflects when Allergies were last updated in [employer].
Home Medications with original date entered in [employer]
Allergy/Medication List:
Allergies
Allergy/AdvReac Type Severity Reaction Status Date / Time
No Known Allergies Allergy Verified 03/02/25 17:07
Home Medications
aspirin 81 mg tablet,delayed release 81 mg PO DAILY 09/11/24
atorvastatin 40 mg tablet 40 mg PO QPM 09/11/24
brimonidine 0.2 %-timolol 0.5 % eye drops (Combigan) 1 drp BOTH EYES BID 09/11/24
isosorbide mononitrate 30 mg tablet,extended release 24 hr 30 mg PO DAILY 09/11/24
ticagrelor 60 mg tablet (Brilinta) 60 mg PO BID 09/11/24
vitamin B complex 1 tab PO QPM 09/11/24
coenzyme Q10 200 mg capsule (Co Q-10) 200 mg PO QPM 12/02/24
ezetimibe 10 mg tablet 5 mg PO QPM 12/02/24
venlafaxine 150 mg capsule,extended release 24 hr 150 mg PO HS 12/02/24
acetaminophen 325 mg tablet (Tylenol) 650 mg PO Q6HPRN PRN mild pain 01/27/25
calcium carbonate (Tums) 200 mg PO BIDPRN PRN gerd 01/27/25
therapeutic multivitamin 1 tab PO QPM 01/27/25
venlafaxine 75 mg capsule,extended release 24 hr (Effexor XR) 75 mg PO HS 01/27/25
dapagliflozin propanediol 10 mg tablet (Farxiga) 10 mg PO DAILY Heart Failure #30 tabs 01/28/25
amoxicillin 875 mg-potassium clavulanate 125 mg tablet 1 tab PO Q12H 5 days #10 tabs 01/30/25
carvedilol 6.25 mg tablet 6.25 mg PO BID #60 tabs 01/30/25
Review of Systems
-
History Source: Patient
A 12 point ROS was completed and negative except as noted: Yes
Constitutional: Reports No Symptoms
EENT: Reports No Symptoms
Respiratory: Reports See HPI
Cardiac: Reports See HPI
Abdomen/GI: Reports No Symptoms
: Reports No Symptoms
Musculoskeletal: Reports No Symptoms
Skin: Reports No Symptoms
Neurological: Reports No Symptoms
Endocrine: Reports No Symptoms
Hematologic/Lymphatic: Reports No Symptoms
Psych: Reports No Symptoms
Physical Exam
Vital Signs
Vital Signs
Temp Pulse Resp BP Pulse Ox
98.4 F 71 17 137/69 97
03/02/25 17:08 03/02/25 18:15 03/02/25 18:28 03/02/25 18:00 03/02/25 18:15
Physical Exam
General: Well Developed, Well Nourished and No Apparent Distress
HEENT: NormoCephalic, Moist mucous membranes and Atraumatic
Respiratory: Clear
Cardiac: S1/S2 and Regular Rhythm; No Murmur or Rub
GI: Soft, Non Tender, Non Distended and Normal Bowel Sounds; No Organomegaly
Rectal: Deferred by Provider
Musculoskeletal: No Clubbing, No Cyanosis and No Edema
Skin: No Rash
Neuro: Nonfocal/grossly intact
Laboratory Results
-
03/02/25 18:08
03/02/25 18:08
Laboratory Results
PT 14.3 Sec (11.4-14.6) 03/02/25 18:08
INR 1.08 03/02/25 18:08
APTT 30.9 Sec (23.4-35.0) 03/02/25 18:08
Data Reviewed
-
Lab Data: Labs Reviewed by me
Old Records: Reviewed
Impression/Plan
-
IMPRESSION:
PLAN:
# AICD device malfunction
-Patient asymptomatic
- As per cardiology noise in the RV pacing lead that could lead to inappropriate therapy and inhibition of pacing, likely needs lead revision
- Cardiology recommends placing a magnet over the device to inhibit its ability to detect and deliver shocks, magnet placed
- N.p.o. postmidnight
- Cardiology consulted
CAD status post CABG with history of biventricular ICD placed in November
- Continue aspirin and Brilinta, statin
- Continue isosorbide mononitrate
Chronic HFrEF
- Continue Coreg
- Continue dapagliflozin
Essential hypertension
Hyperlipidemia
- Continue Zetia
CKD 3
- Renal function at baseline
Abdominal aortic aneurysm status post endovascular aortic repair in 2018
Bilateral carotid artery stenosis bilateral carotid endarterectomies
PAD status post left femoral endarterectomy
GERD
BPH
Anxiety/depression
- Continue venlafaxine
Full code
DVT prophylaxis�SCDs
Regular diet
--- NOTE | 2025-03-03 00:11 | PTCARENOTE ---
received pt from ED at 2130. pt ambulated from stretcher to bed with one point cane. pt A&O x 3. pt offers no current complaints and appears comfortable in bed. call baker within reach. plan of care ongoing.
[2025-03-03] MEDS: ZETIA PO (01:05)
[2025-03-03] MEDS: COREG 6.25 MG PO ×3 (01:06→19:29)
[2025-03-03] MEDS: EFFEXOR XR 150 MG PO ×2 (01:06→19:29)
[2025-03-03 03:24] VITALS: BP 130/68
[2025-03-03 05:11] VITALS: BMI 23.7
[2025-03-03 07:24] LABS: Hematocrit 42.9 % (39.0-52.0); Hemoglobin 13.9 g/dL (13.0-18.0); Mean Corp Hgb Conc. 32.4 g/dL (33.0-37.0); Mean Corpuscular Volume 92.3 fL (80.0-94.0); Nucleated Red Blood Cells % 0 % (-); Platelet Count 245 10^3/uL (130-400); Red Cell Dist. Width 15.4 % (11.5-14.5)
[2025-03-03 07:25] VITALS: BP 129/68
[2025-03-03 07:33] LABS: ALT (SGPT) 21 U/L (0-50); AST (SGOT) 23 U/L (17-59); Albumin 4.0 g/dl (3.5-5.0); Alkaline Phosphatase 99 U/L (38-126); Blood Urea Nitrogen 33 mg/dl (9-20); Calcium 9.6 mg/dl (8.4-10.2); Carbon Dioxide 24 mmol/L (22-30); Chloride 108 mmol/L (98-107); Estimated Creatinine Clearance 40 ml/min; Glucose 98 mg/dl (70-99); Potassium 4.7 mmol/L (3.5-5.1); Sodium 139 mmol/L (135-145); Total Protein 6.7 g/dl (6.3-8.2); eGFR 47.36
[2025-03-03] MEDS: FARXIGA 10 MG PO (08:01)
[2025-03-03] MEDS: ASPIR LOW (ENTERIC COATED) 81 MG PO (08:01)
[2025-03-03] MEDS: IMDUR (EXTENDED RELEASE) 30 MG PO (08:01)
--- NOTE | 2025-03-03 10:09 | CON.CAR ---
Addendum entered and electronically signed by Marc Sifuentes MD 03/03/25 17:30:
Reviewed the patient's noise tracings on the RV lead. yesterday from 306p-319p noted 1-2 s of high frequency noise correlating with adjusting/manipulation two devices for his lower extremities while also manipulating them in a wall outlet. Only
partially sensed by the lead with high frequency noise (some of which was not sensed) at the time he manipulating these devices in the outlet.
No ICD therapies or charge.
Otherwise stable device function with stable leads on CXR.
Will keep overnight after programming changes (decreased v sensitivity) and if stable without noise tomorrow will DC with follow up at [facility] device clinic.
Addendum entered and electronically signed by Richard Wilson MD 03/03/25 13:39:
I saw and examined the patient.
The AUTO DESIGN DETAILER or PA's note was reviewed and I agree with the note.
Comment: General: Well developed, well nourished in NAD.
Neck: Supple, no JVD, HJR, carotids +2 B/L, no bruits bilaterally.
Heart: Non displaced PMI, RRR, no murmurs, No S3, S4, no rubs.
Lungs: Clear to auscultation bilaterally, no wheeze, rhonchi, rubs bilaterally,
normal expiratory phase.
Extremities: No clubbing, cyanosis or edema bilaterally.
Neuro: Grossly nonfocal, awake, alert and oriented x3.
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
status post EVAR in 2018, status post bilateral carotid endarterectomies and left femoral endarterectomy with prior lower right lower extremity stenting. He presents after abnormal device transmission suggesting an RV lead issue. He denies chest
pain or shortness of breath.
Device was interrogated and suggest that the RV lead issue is not a clinical problem and may be due to environmental issue. Lead revision is not needed. Will observe overnight and discharge in a.m. if remains stable
Original Note:
Consultation
Consultation Request
Date/Time Consultation Requested: 03/03/2025
Date/Time Consultation Performed: 03/03/2025
Requesting Provider: Dr. Bae
Performing Provider: Dr. Wilson
Reason for Consultation: Abnormal pacemaker interrogation suggesting RV lead problem
Medical History
-
History of Present Illness:
Patient came to [facility] ER yesterday after an abnormal device transmission suggesting an RV lead issue and cardiology is now consulted. Patient had a Medtronic SADDLE MAKER�D device placed on 12/02/2024, but generally follows with his professor of mechanical engineering at [facility]
Dr. Sanna Hunter. The device clinical quality rn at Dr. Treviño's office received a transmission indicating noise on the RV lead that was inhibiting pacing, no therapy was delivered. Patient received an audible alert at home. Patient was referred
to [facility] ER and CXR in the ER showed an improved small left pleural effusion and overall stable leads. Patient denies feeling poorly. Device was interrogated by [employer] customer response representative and it suspected that the RV lead noise is an environmental
issue, but patient cannot recall using anything like an electric blanket or other electrical device near his SADDLE MAKER�D at around the time that this happened. All of the RV lead noise was between 3:00 and 3:20 PM yesterday afternoon and has not recurred.
PMH:
Admitted with acute HFrEF 01/27/2025 until 01/31/2025
s/p Med[employer]onic SADDLE MAKER�D 12/02/24
Chronic HFrEF
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
CAD
s/p CABG (1984)
Left main PCI (2015)
s/p cardiac cath with iFR negative RCA, 3 patent grafts severe stenosis in the ramus that was unable to be intervened on and will be managed medically 09/15/24
CKD3a
HTN
Hyperlipidemia
AAA, s/p EVAR (2017)
B/L Carotid artery stenosis, s/p bilateral carotid endarterectomies
PAD, s/p Left Femoral endarterectomy (2018) and prior RLE stenting
Left retinal occlusion with blindness/glaucoma
GERD
BPH
Past Medical History
Past Medical History: Other (In HPI)
Past Surgical History: Appendectomy and Cardiac (CABG and PCI, AAA repair, B/L CEA, [employer] PPM 12/02/24)
Social History
Tobacco: Former Smoker
Alcohol: None
Drug: None
Personal:
Living: With Family
Family History
Family History: CAD and Hypertension
Allergies / Home Medications
Allergy/AdvReac Type Severity Reaction Status Date / Time
No Known Allergies Allergy Verified 03/02/25 17:07
�Medication �Instructions �Recorded �Confirmed �Type
aspirin 81 mg tablet,delayed 81 mg PO DAILY Blood Clot 09/11/24 03/02/25 History
release Prevention/Tx
brimonidine 0.2 %-timolol 0.5 % 1 drp BOTH EYES BID Eye Condition 09/11/24 03/02/25 History
eye drops (Combigan)
isosorbide mononitrate 30 mg 30 mg PO DAILY Blood Pressure 09/11/24 03/02/25 History
tablet,extended release 24 hr
ticagrelor 60 mg tablet (Brilinta) 60 mg PO BID Blood Clot 09/11/24 03/02/25 History
Prevention/Tx
vitamin B complex 1 tab PO QPM Supplement 09/11/24 03/02/25 History
coenzyme Q10 200 mg capsule (Co 200 mg PO QPM Supplement 12/02/24 03/02/25 History
Q-10)
ezetimibe 10 mg tablet (Zetia) 5 mg PO QPM High Cholesterol 12/02/24 03/02/25 History
venlafaxine 150 mg 150 mg PO HS Diabetes 12/02/24 03/02/25 History
capsule,extended release 24 hr
acetaminophen 325 mg tablet 650 mg PO Q6HPRN PRN mild pain 01/27/25 03/02/25 History
(Tylenol)
calcium carbonate (Tums) 200 mg PO BIDPRN PRN gerd 01/27/25 03/02/25 History
therapeutic multivitamin 1 tab PO QPM Supplement 01/27/25 03/02/25 History
dapagliflozin propanediol 10 mg 10 mg PO DAILY Heart Failure #30 01/28/25 03/02/25 Rx
tablet (Farxiga) tabs
carvedilol 6.25 mg tablet 6.25 mg PO BID #60 tabs 01/30/25 03/02/25 Rx
rosuvastatin 10 mg PO HS High Cholesterol 03/03/25 03/03/25 History
Review of Systems
-
History Source: Patient
All other systems: Negative unless noted
Physical Exam
Vital Signs
Temp Pulse Resp BP Pulse Ox
98.3 F 78 18 129/63 98
03/03/25 07:25 03/03/25 08:01 03/03/25 07:25 03/03/25 08:01 03/03/25 07:25
GEN: NAD AAO x3
HEENT: EOMI MMM
LUNGS: RA. CTA B/L, no wheeze
CV: AV paced. Reg, S1/S2, no murmur
ABD: soft, BS+, NT, ND
EXT: No edema B/L LE
NEURO: Gross non-focal
SKIN: No rash
Lab Results
03/03/25 06:22
03/03/25 06:22
Impression / Plan
-
PCP: Brandi Tran MD
CDY: Nahun Isidro MD
Impression:
Admitted with abnormal SADDLE MAKER-D interrogation suggesting RV lead issue 03/02/2025
Admitted with acute HFrEF 01/27/2025 until 01/31/2025
s/p Med[employer]onic SADDLE MAKER�D 12/02/24
Chronic HFrEF
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
CAD
s/p CABG (1984)
Left main PCI (2015)
s/p cardiac cath with iFR negative RCA, 3 patent grafts severe stenosis in the ramus that was unable to be intervened on and will be managed medically 09/15/24
CKD3a
HTN
Hyperlipidemia
AAA, s/p EVAR (2017)
B/L Carotid artery stenosis, s/p bilateral carotid endarterectomies
PAD, s/p Left Femoral endarterectomy (2017) and prior RLE stenting
Left retinal occlusion with blindness/glaucoma
GERD
BPH
Echo 01/28/2025: EF 38%. Moderately diminished right ventricular function. Moderate to severe MR. Mild to moderate TR. PAP 43 mmHg
Echo 09/09/2024: EF 25 to 30%, mild to moderate MR, moderate TR with mild PHTN and PAP 40 mmHg
Echo 01/28/2025: EF 38% by Meier's method, but visually 20 to 25% which is similar to echo from 10-02, moderately diminished RV function, moderate to severe MR
Plan:
-Patient came to [facility] ER yesterday after an abnormal device transmission suggesting an RV lead issue and cardiology is now consulted. Patient had a Medtronic SADDLE MAKER�D device placed on 12/02/2024, but generally follows with his professor of mechanical engineering at [facility]
Dr. Sanna Hunter. The device clinical quality rn at Dr. Treviño's office received a transmission indicating noise on the RV lead that was inhibiting pacing, no therapy was delivered. Patient received an audible alert at home. Patient was referred
to [facility] ER and CXR in the ER showed an improved small left pleural effusion and overall stable leads. Patient denies feeling poorly. Device was interrogated by [employer] customer response representative and it suspected that the RV lead noise is an environmental
issue, but patient cannot recall using anything like an electric blanket or other electrical device near his SADDLE MAKER�D at around the time that this happened. All of the RV lead noise was between 3:00 and 3:20 PM yesterday afternoon and has not recurred.
-ECG reviewed by me is AV paced
-Device interrogation reviewed with [employer] customer response representative by me, appears to be environmental noise and patient will not needed lead revision at this time. Programming adjusted and plan is to monitor on telemetry overnight.
-During the patient's last admission from 01/27/2025 until 01/31/2025 he had acute HF, but no evidence of volume overload at this time and weight is 158 lbs which is just below his discharge weight at last HF admission on 01/30/2025.
-Labs reviewed by me and Cre is stable at 1.5 and is likely his baseline.
-Patient does not take a loop diuretic chronically as an outpatient
-EF was visually 20 to 25% by last echo 01/28/2025.
-Outpatient dose of Coreg 6.125 mg BID was continued on admission
-Patient is not chronically on DELIA/ARB/ARNI due to previous intolerance with ELEAZAR and hypotension
-Patient is not chronically on aldosterone antagonist due to previous intolerance with ELEAZAR and hypotension
-Patient is not chronically on SGLT2 inhibitor due to cost
- 76 minutes in [id number] and mxi-oohi-ju-face time for this consultation including coordinating with the device customer response representative and EP
--- NOTE | 2025-03-03 10:13 | W.PN.HOSP.TC ---
Today's Communication/Plan
-
Await Cardiology plans re AICD
Assessment / Plan
Assessment / Plan
79-year-old male with history of AICD presented to the hospital because his device has been making a beeping sound called his block paver who asked him to go to the hospital.
Chest x-ray-small left pleural effusion
Echo 01/28/2025-LVEF is moderately reduced with an EF of 38% by Meier's method and visually 20 to 25%. Moderately diminished RV function. Moderate to severe MR
CVS: S1-S2 normal
Chest: CTA B/L, magnet over ICD
Abdomen: Soft, NT , Bowel sounds present
Extremities: No edema
# AICD malfunction
ICD was placed in November 2024
Patient is asymptomatic
As per cardiology noise in the RV pacing lead that could lead to inappropriate therapy and inhibition of pacing, likely needs lead revision
Cardiology recommends placing a magnet over the device to inhibit its ability to detect and deliver shocks, magnet placed
N.p.o. post midnight for revision /adjustment 03/03/25
Cardiology consulted
# Coronary disease status post CABG-Continue aspirin, Brilinta, statin, Imdur
# Chronic HFrEF-continue Coreg, dapagliflozin
# Hypertension-continue Coreg
# Hyperlipidemia-continue Zetia, statin
# CKD stage III
# Peripheral artery disease
History of left femoral endarterectomy
Bilateral carotid stenosis with bilateral carotid endarterectomies
Abdominal aortic aneurysm status post endovascular aortic repair in 2018
# Enlarged prostate
# Anxiety depression-continue venlafaxine
# Diverticulosis
# GERD-only seems to be on Tums as needed
# Glaucoma-blind left eye-continue Combigan
# Ex-smoker
# DVT prophylaxis-SCDs
# Full code
Discussed with nursing
Part of this note was created using voice recognition system. Occasional wrong word or��sound alike� substitutions may have inadvertently occurred due to the inherent limitations of voice recognition software. If noted kindly bring it to my
attention for correction.
Anticipated Discharge: Within 24 hours
Subjective/Interval History
-
Date of Service: March 03, 2025
Objective Data
-
Labs:
Laboratory Results
03/03/25
06:22
WBC 8.1
Hgb 13.9
Hct 42.9
Plt Count 245
Sodium 139
Potassium 4.7
Chloride 108 H
Carbon Dioxide 24
BUN 33 H
Creatinine 1.5 H
Glucose 98
Calcium 9.6
Total Bilirubin 0.7
AST 23
ALT 21
Alkaline Phosphatase 99
Vital Signs:
Vital Signs
Temp Pulse Resp BP Pulse Ox
98.3 F 78 18 129/63 98
03/03/25 07:25 03/03/25 08:01 03/03/25 07:25 03/03/25 08:01 03/03/25 07:25
I&O
03/02/25 03/03/25 03/04/25
06:59 06:59 06:59
Intake Total 0 / 0
Output Total 480 / 480
Balance -480 / -480
[2025-03-03] MEDS: BRILINTA PO (10:17)
[2025-03-03] MEDS: BRILINTA 60 MG PO ×2 (10:51→19:29)
[2025-03-03 11:07] VITALS: BP 116/54
[2025-03-03 15:12] VITALS: BP 118/50
[2025-03-03] MEDS: ZETIA 5 MG PO (16:45)
--- NOTE | 2025-03-03 17:05 | CM ---
Alert awake oriented patient who lives with his Iam lives in a 2 story home with 3 step to enter and 12 steps to bed and bathroom. He is independent all activities of daily living.He was offered VN he declined need.His will drive him
home.
No VN hx / No SNF history
Pharmacy [facility]
PCP DR Tran
PLAN Home Declined VN
[2025-03-03 19:28] VITALS: BP 141/62
[2025-03-03] MEDS: CRESTOR 10 MG PO (21:42)
[2025-03-03 23:26] VITALS: BP 147/72
[2025-03-04 03:55] VITALS: BP 147/69
[2025-03-04 06:00] VITALS: BMI 23.8
[2025-03-04 07:52] VITALS: BP 126/66
[2025-03-04] MEDS: ASPIR LOW (ENTERIC COATED) 81 MG PO (08:46)
[2025-03-04] MEDS: IMDUR (EXTENDED RELEASE) 30 MG PO (08:46)
[2025-03-04] MEDS: FARXIGA 10 MG PO (08:46)
[2025-03-04] MEDS: BRILINTA 60 MG PO (08:46)
[2025-03-04] MEDS: COREG 6.25 MG PO (08:46)
--- NOTE | 2025-03-04 09:27 | CM ---
Addendum entered by Letitia Landry RN 03/04/25 14:21:
MD entered order for discharge.
Courtney in room Both agree with dc to home today .
IMM reviewed signed and on chart.
Offered VN he declined need.
PLAN Home no needs
Original Note:
Cardiology involved.
Cardiology managing ICD.
Offered VN patient declined VN need at dc.
PLAN Home no anticipated VN need
--- NOTE | 2025-03-04 10:01 | W.PN.CARDCBS ---
Addendum entered and electronically signed by Ross Amezcua DO 03/04/25 11:29:
I saw and examined the patient.
The Hotel Registration Clerk's note was reviewed and I agree with the note.
Comment:
Plan:
Reviewed with pt to avoid the precipitating environmental factors.
PPM reviewed with pt
Stable for d/c today from cardiac standpoint
Original Note:
Today's Communication / Plan
-
Will manage as environmental noise
D/C to home today
Impression / Plan
-
PCP: Brandi Tran MD
CDY: Nahun Isidro MD
Impression:
Admitted with abnormal DIPPER MACHINE OPERATOR-D interrogation suggesting RV lead issue 03/02/2025
Admitted with acute HFrEF 01/27/2025 until 01/31/2025
s/p [employer] DIPPER MACHINE OPERATOR�D 12/02/24
Chronic HFrEF
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
CAD
s/p CABG (1984)
Left main PCI (2015)
s/p cardiac cath with iFR negative RCA, 3 patent grafts severe stenosis in the ramus that was unable to be intervened on and will be managed medically 09/15/24
CKD3a
HTN
Hyperlipidemia
AAA, s/p EVAR (2017)
B/L Carotid artery stenosis, s/p bilateral carotid endarterectomies
PAD, s/p Left Femoral endarterectomy (2018) and prior RLE stenting
Left retinal occlusion with blindness/glaucoma
GERD
BPH
Echo 01/28/2025: EF 38%. Moderately diminished right ventricular function. Moderate to severe MR. Mild to moderate TR. PAP 43 mmHg
Echo 09/09/2024: EF 25 to 30%, mild to moderate MR, moderate TR with mild PHTN and PAP 40 mmHg
Echo 01/28/2025: EF 38% by Meier's method, but visually 20 to 25% which is similar to echo from 10-02, moderately diminished RV function, moderate to severe MR
Plan:
-Appreciate help of [employer] order entry representative, patient's device was checked 03/03/25 and again 03/04/25. No recurrence of brief RV lead 'noise' that was detected 03/02/25 between 3:00 and 3:20 PM. In hindsight there is the possibility that a power strip
or foot ergometer he was using at home at the time could have contributed to the noise. Rep also added Medtronic justin to patient's phone which he can now use instead of his bedside monitor at home.
-No plans for RV lead revision and will manage as environmental noise.
-During the patient's last admission from 01/27/2025 until 01/31/2025 he had acute HF, but no evidence of volume overload at this time and weight is 158 lbs which is just below his discharge weight at last HF admission on 01/30/2025.
-Patient does not take a loop diuretic chronically as an outpatient
-EF was visually 20 to 25% by last echo 01/28/2025.
-Outpatient dose of Coreg 6.125 mg BID was continued on admission
-Patient is not chronically on DELIA/ARB/ARNI due to previous intolerance with ELEAZAR and hypotension
-Patient is not chronically on aldosterone antagonist due to previous intolerance with ELEAZAR and hypotension
-Patient is not chronically on SGLT2 inhibitor due to cost
-D/C to home 03/04/25, TT to hospitalist attending by me to review. f/u with Dr. Isidro at [facility] as planned.
HPI: Patient came to [facility] ER yesterday after an abnormal device transmission suggesting an RV lead issue and cardiology is now consulted. Patient had a Medtronic DIPPER MACHINE OPERATOR�D device placed on 12/02/2024, but generally follows with his sail maker at [facility]
Dr. Sanna Hunter. The device director of clinical trials at Dr. Treviño's office received a transmission indicating noise on the RV lead that was inhibiting pacing, no therapy was delivered. Patient received an audible alert at home. Patient was referred
to [facility] ER and CXR in the ER showed an improved small left pleural effusion and overall stable leads. Patient denies feeling poorly. Device was interrogated by [employer] order entry representative and it suspected that the RV lead noise is an environmental
issue, but patient cannot recall using anything like an electric blanket or other electrical device near his DIPPER MACHINE OPERATOR�D at around the time that this happened. All of the RV lead noise was between 3:00 and 3:20 PM yesterday afternoon and has not recurred.
Progress Note - Mri Assistant
Subjective
Date of Service: March 04, 2025
He feels well and wants to go home
Objective
Labs:
03/03/25 06:22
03/03/25 06:22
Labs
Hgb 13.9 g/dL (13.0-18.0) 03/03/25 06:22
Hct 42.9 % (39.0-52.0) 03/03/25 06:22
Plt Count 245 10^3/uL (130-400) 03/03/25 06:22
PT 14.3 Sec (11.4-14.6) 03/02/25 18:08
INR 1.08 03/02/25 18:08
APTT 30.9 Sec (23.4-35.0) 03/02/25 18:08
Sodium 139 mmol/L (135-145) 03/03/25 06:22
Potassium 4.7 mmol/L (3.5-5.1) 03/03/25 06:22
BUN 33 mg/dl (9-20) H 03/03/25 06:22
Creatinine 1.5 mg/dL (0.7-1.3) H 03/03/25 06:22
Glucose 98 mg/dl (70-99) 03/03/25 06:22
Vital Signs and I&O:
Vital Signs
Temp Pulse Resp BP Pulse Ox
98.9 F 89 18 126/66 99
03/04/25 07:52 03/04/25 08:46 03/04/25 07:52 03/04/25 08:46 03/04/25 07:52
Vital Signs
Temp Pulse Resp BP Pulse Ox
98.9 F 89 18 126/66 99
03/04/25 07:52 03/04/25 08:46 03/04/25 07:52 03/04/25 08:46 03/04/25 07:52
Intake & Output
03/02/25 03/03/25 03/04/25 03/05/25
06:59 06:59 06:59 06:59
Intake Total 0 / 0 1080 / 1080 480 / 480
Output Total 480 / 480 580 / 580 1120 / 1120
Balance -480 / -480 500 / 500 -640 / -640
Physical Exam
Physical Exam
GEN: NAD AAO x3
LUNGS: RA. No wheeze
CV: AV paced.
[2025-03-04 11:39] VITALS: BP 99/60
--- NOTE | 2025-03-04 13:52 | W.PN.HOSP.TC ---
Addendum entered and electronically signed by Amberly aBe MD 03/04/25 14:10:
dictation- [id number]
Original Note:
Today's Communication/Plan
-
Discharge
Assessment / Plan
Assessment / Plan
79-year-old male with history of AICD presented to the hospital because his device has been making a beeping sound called his paper finisher who asked him to go to the hospital.
Chest x-ray-small left pleural effusion
Echo 01/28/2025-LVEF is moderately reduced with an EF of 38% by Meier's method and visually 20 to 25%. Moderately diminished RV function. Moderate to severe MR
CVS: S1-S2 normal
Chest: CTA B/L, magnet over ICD
Abdomen: Soft, NT , Bowel sounds present
Extremities: No edema
# AICD malfunction
ICD was placed in November 2024
Patient is asymptomatic
Interrogation of the device showed environmental factors/electronics were interfering with the sound
Device is working fine. No interventions needed
# Coronary disease status post CABG-Continue aspirin, Brilinta, statin, Imdur
# Chronic HFrEF-continue Coreg, dapagliflozin
# Hypertension-continue Coreg
# Hyperlipidemia-continue Zetia, statin
# CKD stage III
# Peripheral artery disease
History of left femoral endarterectomy
Bilateral carotid stenosis with bilateral carotid endarterectomies
Abdominal aortic aneurysm status post endovascular aortic repair in 2018
# Enlarged prostate
# Anxiety depression-continue venlafaxine
# Diverticulosis
# GERD-only seems to be on Tums as needed
# Glaucoma-blind left eye-continue Combigan
# Ex-smoker
# DVT prophylaxis-SCDs
# Full code
Discussed with nursing
Discussed with cardiology
Discussed with patient's at bedside
More than 30 minutes spent in discharge including
Final examination of the patient
Summarizing hospital stay
Instructions for continuing care to all relevant caregivers
Preparation of discharge records, prescriptions, and referral forms
Part of this note was created using voice recognition system. Occasional wrong word or��sound alike� substitutions may have inadvertently occurred due to the inherent limitations of voice recognition software. If noted kindly bring it to my
attention for correction.
Anticipated Discharge: Today
Subjective/Interval History
-
Date of Service: March 04, 2025
Objective Data
-
Vital Signs:
Vital Signs
Temp Pulse Resp BP Pulse Ox
97.6 F 75 18 99/60 100
03/04/25 11:39 03/04/25 11:39 03/04/25 11:39 03/04/25 11:39 03/04/25 11:39
I&O
03/03/25 03/04/25 03/05/25
06:59 06:59 06:59
Intake Total 0 / 0 1080 / 1080 720 / 720
Output Total 480 / 480 580 / 580 1520 / 1520
Balance -480 / -480 500 / 500 -800 / -800
--- NOTE | 2025-03-04 14:08 | W.DS.TRANS ---
DC Summary - Office Engineer
-
Discharge Instructions:
Discharge Diagnosis/Procedures Right ventricular lead noise, likely
environmental noise from household electronics
Medtronic CLOTH CUTTER�D implanted 12/02/24
Coronary disease with history of CABG
Chronic heart failure
Hypertension
Hyperlipidemia
Chronic kidney disease
Peripheral artery disease
Diverticulosis
GERD
Anxiety/depression
Diet 2 Gram Sodium,Restrict fluids to 64 oz
Activity As tolerated
Driving Restrictions As prior to admission
Bathing Restrictions None
Specialty Instructions Weigh Daily
Instructions:
Stand-Alone Forms:
Changes to Home Medications: No
Discharge Medications:
DC Medications w/original date entered in [facility]
aspirin 81 mg tablet,delayed release 81 mg PO DAILY Blood Clot Prevention/Tx 09/11/24
brimonidine 0.2 %-timolol 0.5 % eye drops (Combigan) 1 drp BOTH EYES BID Eye Condition 09/11/24
isosorbide mononitrate 30 mg tablet,extended release 24 hr 30 mg PO DAILY Blood Pressure 09/11/24
ticagrelor 60 mg tablet (Brilinta) 60 mg PO BID Blood Clot Prevention/Tx 09/11/24
vitamin B complex 1 tab PO QPM Supplement 09/11/24
coenzyme Q10 200 mg capsule (Co Q-10) 200 mg PO QPM Supplement 12/02/24
ezetimibe 10 mg tablet (Zetia) 5 mg PO QPM High Cholesterol 12/02/24
venlafaxine 150 mg capsule,extended release 24 hr 150 mg PO HS Diabetes 12/02/24
acetaminophen 325 mg tablet (Tylenol) 650 mg PO Q6HPRN PRN mild pain 01/27/25
calcium carbonate (Tums) 200 mg PO BIDPRN PRN gerd 01/27/25
therapeutic multivitamin 1 tab PO QPM Supplement 01/27/25
dapagliflozin propanediol 10 mg tablet (Farxiga) 10 mg PO DAILY Heart Failure #30 tabs 01/28/25
carvedilol 6.25 mg tablet 6.25 mg PO BID #60 tabs 01/30/25
rosuvastatin 10 mg PO HS High Cholesterol 03/03/25
Home Medication Changes
Pending Results: No
== END 2025-03-04 15:06 | disposition home or self-care (01) | DRG 315 ==
LOC: 4 EAST ACU 18:44
PROVIDERS: ADMITTING PHYSICIAN Hospitalist; ATTENDING PHYSICIAN Hospitalist; EMERGENCY PHYSICIAN Emergency Medicine; FAMILY PHYSICIAN Student in an Organized Health Care Education/Training Program; OTHER PHYSICIAN Internal Medicine Cardiovascular Disease
PROC: 4B02XTZ Measurement of Cardiac Defibrillator, External Approach (ICD-10-PCS; 2025-03-03)
DX: T82.897A Other specified complication of cardiac prosthetic devices, implants and grafts, initial encounter (principal); I13.0 Hypertensive heart and chronic kidney disease with heart failure and stage 1 through stage 4 chronic kidney disease, or unspecified chronic kidney disease; I42.8 Other cardiomyopathies; I50.22 Chronic systolic (congestive) heart failure; I25.10 Atherosclerotic heart disease of native coronary artery without angina pectoris; I25.5 Ischemic cardiomyopathy; E78.00 Pure hypercholesterolemia, unspecified; K21.9 Gastro-esophageal reflux disease without esophagitis; F41.9 Anxiety disorder, unspecified; F32.A Depression, unspecified; I73.9 Peripheral vascular disease, unspecified; N18.31 Chronic kidney disease, stage 3a; N40.0 Benign prostatic hyperplasia without lower urinary tract symptoms; Y71.2 Prosthetic and other implants, materials and accessory cardiovascular devices associated with adverse incidents; Z45.02 Encounter for adjustment and management of automatic implantable cardiac defibrillator; Z86.79 Personal history of other diseases of the circulatory system; Z79.899 Other long term (current) drug therapy; Z79.82 Long term (current) use of aspirin; Z79.84 Long term (current) use of oral hypoglycemic drugs; Z87.891 Personal history of nicotine dependence; Z95.1 Presence of aortocoronary bypass graft; Z95.820 Peripheral vascular angioplasty status with implants and grafts
CPT/HCPCS: 71046; 80048; 80053; 85025; 85027; 85610; 85730; 93005; 99285

== ENCOUNTER 2025-05-20 18:43 | Inpatient (IN) | payer MEDICARE, OTHER, SELFPAY ==
[2025-05-20 15:18] VITALS: BP 122/71
[2025-05-20 15:49] LABS: Hematocrit 37.6 % (39.0-52.0); Hemoglobin 11.9 g/dL (13.0-18.0); Mean Corp Hgb Conc. 31.6 g/dL (33.0-37.0); Mean Corpuscular Volume 87.4 fL (80.0-94.0); Nucleated Red Blood Cells % 0 % (-); Platelet Count 217 10^3/uL (130-400); Red Cell Dist. Width 16.0 % (11.5-14.5)
[2025-05-20 16:23] LABS: Troponin I 0.046 ng/ml
[2025-05-20 16:25] LABS: ALT (SGPT) 74 U/L (0-50); AST (SGOT) 37 U/L (17-59); Albumin 3.2 g/dl (3.5-5.0); Alkaline Phosphatase 84 U/L (38-126); Blood Urea Nitrogen 56 mg/dl (9-20); Calcium 8.4 mg/dl (8.4-10.2); Carbon Dioxide 21 mmol/L (22-30); Chloride 103 mmol/L (98-107); Glucose 141 mg/dl (70-99); Potassium 4.2 mmol/L (3.5-5.1); Sodium 132 mmol/L (135-145); Total Protein 5.9 g/dl (6.3-8.2); eGFR 40.75
--- NOTE | 2025-05-20 17:03 | ED.GENMED ---
History of Present Illness
General
Chief Complaint: Breathing Problem
Source: patient, records and spouse
Exam Limitations: none
Time Seen by Provider: 05/20/25 17:01
History of Present Illness
History of Present Illness:
79yoM with a history of CHF with EF of 25% with AICD, coronary artery disease, peripheral artery disease, hypertension, hyperlipidemia, CKD, AAA s/p repair presenting with his for evaluation of weight gain and leg swelling. Patient has gained
about 8 to 9 pounds over the past month. He started to notice leg swelling about 2 weeks ago. He is also symptomatic with shortness of breath. He takes as needed Lasix at home and has been taking 20 mg Lasix over the past 3 days without any
improvement. He called his correspondence specialist today who told him to go to the ED for evaluation.
Past History
Past History
ED Past Medical History: None
ED Past Surgical History: Appendectomy
Social History
Tobacco: Smoker
Phy Exam
Physical Exam
Physical Exam:
Chronically ill appearing, no apparent distress
General Physical Exam
General Presentation: no apparent distress
General Skin: warm and dry
General Habitus: normal
General Mental: alert
ENT Exam
ENT Exam: normocephalic
Cardiovascular Exam
Cardiovascular Exam: regular rate/rhythm, normal peripheral pulses (DP doppler signals present bilaterally) and other (3+ pitting edema in bilateral lower extremities)
Pulmonary Exam
Pulmonary Exam: no respiratory distress, no rhonchi, no stridor, no wheezing and other (Bibasilar rales)
Neurological Exam
Neurological Exam: alert
[place] Coma Scale
Eye Opening: Spontaneous
Verbal Response: Oriented
Motor Response: Obeys Commands
GCS Total Score: 15
Skin Exam
Skin Exam: normal color and warm/dry
Psychiatric Exam
Psychiatric Exam: normal mood/affect
Scores
Heart Failure Risk
Heart Failure Risk Score: Not Applicable
Course
Orders/Labs/Results
Orders:
Orders
05/20/25 Dinner
Cholesterol Lowering
At Your Request: Limited Participation
Does patient need a safe tray?: No
Fluid Restriction: 1200 mL/day (40 oz)
Cholesterol Lowering: Sodium, 2 Gram
05/20/25 15:24
Electrocardiogram (*1) Urgent
Reason for Study: Other
Other Reason for Exam: Respiratory Distress
EKG- Treatment ONCE
CR Chest - 2 Views Urgent
Comment:
Reason For Exam: respiratory distress
05/20/25 15:25
Interrogate Pacemaker- Treatment ONCE
05/20/25 15:44
Complete Blood Count/With Diff Urgent
Comprehensive Metabolic Panel Urgent
NT-proBNP Urgent
Troponin I Urgent
05/20/25 17:22
Cardiac Monitoring- Treatment ONCE
Furosemide [Lasix] 40 mg IV NOW STA
05/20/25 17:31
Furosemide [Lasix] 40 mg IV NOW STA
05/20/25 17:49
CARDIOLOGY CONSULT Routine
Consulting Provider: Teja Lazaro
Was physician already notified: Yes
Reason for consult: CHF
05/20/25 17:[address] Non Medication Order As Directed
Physician Order: please complete med rec
Above order entered?: Yes
05/20/25 18:32
Admit/Transfer Patient As Directed
Co-Sign Provider:
Level of Care: Inpatient admission
Assign to:: Telemetry
Physician / Group: Maddie
Diagnosis: CHF
Reason for Telemetry: Acute Heart Failure
Date to Stop Telemetry: 05/23/25
Time to Stop Telemetry: 11:00
Reason for Hospitalization: CHF
Expected length of stay greater than two midnights?: Yes
ELOS- Estimated Length of Stay in days: 3
I certify the patient meets the requirements for IP care: Yes
05/20/25 18:33
PRN Pain Medication Management As Directed
May give lesser potent ordered pain med per pt: Yes
preference::
Protocol:: Medication orders for pain may be administered in a
manner that supports deferring to patient preference
when the pt is:
- Requesting an ordered lesser potent pain medication.
Least to most potent pain medications are defined
as: acetaminophen < NSAID < tramadol < opioids
(morphine, oxycodone, hydromorphone).
- Requesting a lesser dose of the same medication IF
ORDERED.
- Requesting a less intrusive route of administration
if both routes are prescribed by the provider (PO <
IV).
05/20/25 18:34
Code Status As Directed
Resuscitation Status: Full Code
05/20/25 20:50
Calcium 200mg(Ca. Carb. 500mg) [Tums Chewable Tablet] 200 mg PO BIDPRN PRN gerd
Carvedilol [Coreg] 6.25 mg PO BID
Heparin 5,000 units SC Q12
05/20/25 20:50
HF DIETARY CONSULT Routine
HF EDUCATOR CONSULT Routine
Comment:
Activity As Directed
Activity Level: With Assistance
Intake/ Output As Directed
Frequency: q12h
Patient Education As Directed
Type: CHF folder
Comment: give on admission. Document in Interdisciplinary Education record
Sleep Apnea Assessment by RN As Directed
Comment:
Physician Instructions:
Vital Signs As Directed
Frequency: Other
Additional Instructions:: Q12 or per unit guidelines if more frequent.
Weight As Directed
Frequency: Daily
Type of Scale: Standing Scale
Comment: Daily morning weight. If unable to stand, use balanced bed scale.
Weight As Directed
Frequency: Once
Type of Scale: Standing Scale
Comment: Upon Admission. If unable to stand, use balanced bed scale.
Pulse Ox/cont/shift [RESP] Routine
Quantity: 1
Special Instructions: Daily pulse oximetry at rest. If greater than 92% at rest also obtain pulse oximetry
while ambulating as tolerated.
DX Deep Vein Thrombosis Video Routine
05/20/25 22:00
Rosuvastatin Calcium [Crestor] 10 mg PO HS
Venlafaxine Extended Release [Effexor Xr] 225 mg PO HS
05/21/25 06:00
Basic Metabolic Panel IN AM
05/21/25 08:00
Clopidogrel Bisulfate [Plavix] 75 mg PO DAILY
Furosemide [Lasix] 80 mg IV BID AT 0800,1600
ISOSORBIDE MONOnitrate ER [Imdur (Extended Release)] 30 mg PO DAILY
05/21/25 18:00
Ezetimibe [Zetia] 5 mg PO QPM
Multivitamin [Theragran] 1 tablet PO QPM
Vitamin B Complex with C [B COMPLEX w/VITAMIN C] 1 caplet PO QPM
coenzyme Q10 [Co Q-10] 200 mg PO QPM
05/22/25 06:00
Basic Metabolic Panel IN AM
05/23/25 06:00
Basic Metabolic Panel IN AM
05/23/25 11:00
DC Protocol for Telemetry ONCE
Abnormal Lab Results
05/20/25
15:44
RBC 4.30 L 10^6/uL
(4.70-6.10)
Hgb 11.9 L g/dL
(13.0-18.0)
Hct 37.6 L %
(39.0-52.0)
MCHC 31.6 L g/dL
(33.0-37.0)
RDW 16.0 H %
(11.5-14.5)
Absolute Neuts (auto) 7.5 H 10^3/uL
(1.4-6.5)
Absolute Monos (auto) 1.0 H 10^3/uL
(0.1-0.6)
Neutrophils % 76.8 H %
(42.2-75.2)
Lymphocytes % 11.7 L %
(20.5-51.1)
Monocytes % 10.3 H %
(1.7-9.3)
Sodium 132 L mmol/L
(135-145)
Carbon Dioxide 21 L mmol/L
(22-30)
BUN 56 H mg/dl
(9-20)
Creatinine 1.7 H mg/dL
(0.7-1.3)
Glucose 141 H mg/dl
(70-99)
ALT 74 H U/L
(0-50)
Troponin I 0.046 H* ng/ml
Total Protein 5.9 L g/dl
(6.3-8.2)
Albumin 3.2 L g/dl
(3.5-5.0)
05/20/25 15:44
05/20/25 15:44
Vital Signs
Initial and Last Documented VS:
Initial Vital Signs
Temp Pulse Resp BP Pulse Ox
98.2 F 73 20 122/71 92
05/20/25 15:18 05/20/25 15:18 05/20/25 15:18 05/20/25 15:18 05/20/25 15:18
Last Documented Vital Signs
Temp Pulse Resp BP Pulse Ox
97.7 F 83 20 144/79 94
05/20/25 20:59 05/20/25 20:59 05/20/25 20:59 05/20/25 20:59 05/20/25 20:59
MDM/Problems Addressed
Differential Diagnosis Includes:
79yoM here with leg swelling, SOB, and weight gain x several weeks. Hx of CHF with EF of 25%. Typically takes Lasix PRN, no improvement after taking Lasix x 3 days. Sent in by correspondence specialist. VSS. Oxygen saturation 92% on room air. Patient volume
overloaded on exam. No signs of respiratory distress. Differential diagnosis includes but is not limited to: CHF exacerbation, anasarca, cardiorenal syndrome
Workup initiated in triage. BNP significantly elevated around 23,000. Troponin mildly elevated at 0.046 which is improved from last hospitalization. Creatinine 1.7 which is slightly worse than 1.5 in February. Chest x-ray with slightly
increased pleural effusions. Presentation consistent with acute CHF exacerbation. 40 mg IV Lasix ordered. He will require hospitalization.
*Pulse Oximetry
SaO2: 92
Oxygen Mode of Delivery: Room air
Patient hypoxic: no
*EKG
Interpreted by ED Provider?: Yes
EKG Intrepretation Date: 05/20/25
Heart Rate: 78
Rate: normal
Rhythm: PVC's and ventricular paced
[place]: normal axis
*Critical Care Note
Total Time (30-74mins, 75-104mins- exclusive of procedures): Not Applicable
ED Attending Note
-
Portions of this chart may have been created with voice recognition software.� Occasional wrong word or��sound alike� substitutions may have occurred due to the inherent limitations of voice recognition software.
Discharge Plan
Departure
Patient Disposition: Admit
Date of Disposition: 05/20/25
Time of Disposition: 17:26
Presentation/result/management discussed w/ accepting MD/DO: Hospitalist
Discharge Problem:
Acute exacerbation of CHF (congestive heart failure)
Interventions
Interventions:
*General Assessment Last Done: 05/20/25 17:25
*Neglect/Abuse Screening Last Done: 05/20/25 15:18
*ED Influenza Vaccine History Last Done: 05/20/25 17:25
[facility] Risk Assessment Tool Last Done: 05/20/25 16:00
*Nursing Disposition Last Done: 05/20/25 20:52
ED- Cardiac Assessment Last Done: 05/20/25 17:26
ED- Pulmonary Assessment Last Done: 05/20/25 17:26
Discharge Date and Time
Discharge Date/Time: 05/20/25 20:52
[2025-05-20] MEDS: LASIX 40 MG IV ×2 (17:28→18:18)
--- NOTE | 2025-05-20 17:33 | HPS.HSE ---
Family Physician
-
Family Physician:
Chief Complaint
-
LE edema
History of Present Illness
79 y/o M with PMHx:
Chronic HFrEF
CAD s/p CABG
Essential HTN
HLD
CKD3a
PAD with h/o L femoral endarterectomy and B/L CEA
Anxiety/Depression
GERD-only seems to be on Tums as needed
Glaucoma, blind in L eye
Hyponatremia, mild
who p/w CC LE edema. The patient has had worsening lower extremity edema resulting in an 8 to 9 pound weight gain. This has occurred over the last few weeks. He stated he increased his as needed Lasix to 20 mg daily for 3 days without
improvement. He has had orthopnea and paroxysmal nocturnal dyspnea. No other new/acute complaints. He was sent to the hospital by his student assistance counselor for admission.
Medical History
Past Medical History
Past Medical History: Reports Other (as per HPI)
Past Surgical History: Reports Other (N/A)
Social History
Tobacco: Non-smoker
Alcohol: None
Drug: None
Family History
Family History: Not pertinent
Allergies / Home Medications
Allergies reflects when Allergies were last updated in [facility].
Home Medications with original date entered in [facility]
Allergy/Medication List:
Allergies
Allergy/AdvReac Type Severity Reaction Status Date / Time
No Known Allergies Allergy Verified 05/20/25 15:42
Home Medications
aspirin 81 mg tablet,delayed release 81 mg PO DAILY Blood Clot Prevention/Tx 09/11/24
brimonidine 0.2 %-timolol 0.5 % eye drops (Combigan) 1 drp BOTH EYES BID Eye Condition 09/11/24
isosorbide mononitrate 30 mg tablet,extended release 24 hr 30 mg PO DAILY Blood Pressure 09/11/24
ticagrelor 60 mg tablet (Brilinta) 60 mg PO BID Blood Clot Prevention/Tx 09/11/24
vitamin B complex 1 tab PO QPM Supplement 09/11/24
coenzyme Q10 200 mg capsule (Co Q-10) 200 mg PO QPM Supplement 12/02/24
ezetimibe 10 mg tablet (Zetia) 5 mg PO QPM High Cholesterol 12/02/24
venlafaxine 150 mg capsule,extended release 24 hr 150 mg PO HS Diabetes 12/02/24
acetaminophen 325 mg tablet (Tylenol) 650 mg PO Q6HPRN PRN mild pain 01/27/25
calcium carbonate (Tums) 200 mg PO BIDPRN PRN gerd 01/27/25
therapeutic multivitamin 1 tab PO QPM Supplement 01/27/25
dapagliflozin propanediol 10 mg tablet (Farxiga) 10 mg PO DAILY Heart Failure #30 tabs 01/28/25
carvedilol 6.25 mg tablet 6.25 mg PO BID #60 tabs 01/30/25
rosuvastatin 10 mg PO HS High Cholesterol 03/03/25
Pharmacy currently working on med rec
Review of Systems
-
History Source: Patient
A 12 point ROS was completed and negative except as noted: Yes
Physical Exam
Vital Signs
Vital Signs
Temp Pulse Resp BP Pulse Ox
98.2 F 80 14 122/71 92
05/20/25 15:18 05/20/25 17:24 05/20/25 17:24 05/20/25 15:18 05/20/25 17:05
Physical Exam
General: Other (.)
Laboratory Results
-
05/20/25 15:44
05/20/25 15:44
Laboratory Results
Total Bilirubin 0.9 mg/dl (0.2-1.3) 05/20/25 15:44
AST 37 U/L (17-59) 05/20/25 15:44
ALT 74 U/L (0-50) H 05/20/25 15:44
Alkaline Phosphatase 84 U/L (38-126) 05/20/25 15:44
Troponin I 0.046 ng/ml H* 05/20/25 15:44
Impression/Plan
-
Gen: NAD, AAOx3.
Eyes: EOMI, no scleral icterus.
Neck: supple.
CV: RRR, +S1/S2, no m/r/g.
Resp: faint rales in the bases
Abd: +BS, soft, NT, ND
Skin: faint petechiae in the LEs, 2+ B/L LE edema
Neuro: CN 2-12 intact, non-focal.
Psych: Normal mood and affect.
Echo 04/14/25:
1. Severe left ventricular systolic dysfunction.
2. Moderate MR/TR.
3. Moderate pulmonary hypertension.
CXR 05/20/25: Slightly increased small to moderate left pleural effusion and trace right pleural effusion.
Acute on chronic HFrEF:
-presents with worsening LE edema, wt gain of 8-9lbs despite increasing lasix HYDRO OPERATOR
-proBNP 23,200, CXR above
-ER ordered 40mg IV Lasix, will give another 40mg IV Lasix now followed by 80mg IV BID
-daily wts, I/Os
-recent echo above, EF 25%
-h/o AICD
-c/s cards
-cont BB/SGLT2i
Other problems:
CAD s/p CABG: cont BB/statin/Brilinta
Essential HTN: cont BB/Imdur
HLD: cont statin
CKD3a
PAD with h/o L femoral endarterectomy and B/L CEA: cont statin/Brilinta
Anxiety/Depression: cont Effexor
GERD: start PPI
Glaucoma, blind in L eye
Hyponatremia, mild
FULL/heparin
[2025-05-20 18:00] VITALS: BP 145/89
[2025-05-20 19:00] VITALS: BP 124/85
[2025-05-20 20:00] VITALS: BP 115/77
--- NOTE | 2025-05-20 20:55 | PTCARENOTE ---
Pt admitted to 406-2 from ED. Stood and pivoted from stretcher to bed. AAOX3, VSS. on tele box #14 V paced in 80s with PVCs. Call baker within reach.
[2025-05-20 20:58] VITALS: BMI 25.4
[2025-05-20 20:59] VITALS: BP 144/79; BMI 25.4
[2025-05-20] MEDS: EFFEXOR XR 225 MG PO ×2 (21:23→21:24)
[2025-05-20] MEDS: COREG 6.25 MG PO (21:23)
[2025-05-20] MEDS: CRESTOR 10 MG PO (21:23)
[2025-05-20] MEDS: ALPHAGAN 0.2% EYE DROPS 1 DROP OPHTH (21:24)
[2025-05-20] MEDS: TIMOPTIC 0.5% OPHTHALMIC SOLUTION 1 DROP OPHTH (21:26)
[2025-05-20] MEDS: HEPARIN 5000 UNITS SC (21:51)
[2025-05-20 23:20] VITALS: BP 133/81
[2025-05-21 03:55] VITALS: BP 136/80
[2025-05-21 06:00] VITALS: BMI 25.1
--- NOTE | 2025-05-21 07:26 | CON.CAR ---
Addendum entered and electronically signed by Richard Wilson MD 05/21/25 11:20:
I saw and examined the patient.
The RANGE SCIENTIST or PA's note was reviewed and I agree with the note.
Comment: General: Well developed, well nourished in NAD.
Neck: Supple, no JVD, HJR, carotids +2 B/L, no bruits bilaterally.
Heart: Non displaced PMI, RRR, no murmurs, No S3, S4, no rubs.
Lungs: Scattered rhonchi
Extremities: No clubbing, cyanosis or edema bilaterally.
Neuro: Grossly nonfocal, awake, alert and oriented x3.
Darvin has a history of CAD status post CABG in 1984 with subsequent left main stent 2015 and catheterization September 2024 with patent bypass grafts with severe stenosis in the ramus that was treated medically, chronic systolic CHF, status post ICD November
2024. He presented worsening lower extremity edema and 8 to 9 pound weight gain over the past several weeks.
He feels better with IV Lasix will continue IV Lasix might consider change to oral Lasix on Tuesday 05/22. Troponin elevation likely nonischemic myocardial injury. Catheterization in September 2024 with CAD only amenable to medications.
Original Note:
Consultation
Consultation Request
Date/Time Consultation Requested: 05/20/2025, 1749
Date/Time Consultation Performed: 05/21/2025, 07 30
Requesting Provider: Dr. Perkins
Performing Provider: YAZMIN Moore for Dr Wilson
Reason for Consultation: heart failure
Medical History
-
Chief Complaint: Lower extremity
History of Present Illness:
79-year-old male with history of CAD status post CABG 1984, subsequent left main PCI in 2015, cardiac cath in September 2024 with patent bypass grafts with severe stenosis in the ramus unable to be intervened upon, chronic systolic heart failure,
[employer] CONDUCTOR FREIGHT- D on 12/02/2024, presents to [facility] with worsening lower extremity edema and 8- 9 pound weight gain over past several weeks. Usually takes Lasix on a PRN basis and had increased to 20 mg daily x 3 days with no improvement. Also with
PND and orthopnea. Advised to go to ED by his primary life scientists Dr sIidro.
ED workup:
Chest x-ray: Small to moderate left pleural effusion and trace right pleural effusion
proBNP 23,200, troponin 0.0464, BUN/creatinine 56/1.7, NA 132, K4.2, hemoglobin 11.9
EKG: AV paced with PVCs.
Had follow-up echo 04/14/2025: Normal LV size, LVEF 25%, normal RV size and function, mild AI, moderate MR, moderate TR, mild to moderate MS
PMH:
Acute heart failure reduced EF
Admission with acute HFrEF 01/27/2025 until 01/31/2025
RV lead noise, likely environmental noise from household electronics status post admission 02/2025
s/p [employer] CONDUCTOR FREIGHT�D 12/02/24
Chronic HFrEF
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
CAD
s/p CABG (1984)
Left main PCI (2015)
s/p cardiac cath with iFR negative RCA, 3 patent grafts severe stenosis in the ramus that was unable to be intervened on and will be managed medically 09/15/24
CKD3a
HTN
Hyperlipidemia
AAA, s/p EVAR (2017)
B/L Carotid artery stenosis, s/p bilateral carotid endarterectomies
PAD, s/p Left Femoral endarterectomy (2018) and prior RLE stenting
Left retinal occlusion with blindness/glaucoma
GERD
BPH
Past Medical History
Past Medical History: Other (In HPI)
Past Surgical History: Appendectomy and Cardiac (CABG and PCI, AAA repair, B/L CEA, [employer] PPM 12/02/24)
Social History
Tobacco: Former Smoker
Alcohol: None
Drug: None
Personal:
Living: With Family
Family History
Family History: CAD and Hypertension
Allergies / Home Medications
Allergy/AdvReac Type Severity Reaction Status Date / Time
No Known Allergies Allergy Verified 05/20/25 15:42
�Medication �Instructions �Recorded �Confirmed �Type
brimonidine 0.2 %-timolol 0.5 % 1 drp BOTH EYES BID Eye Condition 09/11/24 05/20/25 History
eye drops (Combigan)
isosorbide mononitrate 30 mg 30 mg PO DAILY Blood Pressure 09/11/24 05/20/25 History
tablet,extended release 24 hr
vitamin B complex 1 tab PO QPM Supplement 09/11/24 05/20/25 History
coenzyme Q10 200 mg capsule (Co 200 mg PO QPM Supplement 12/02/24 05/20/25 History
Q-10)
ezetimibe 10 mg tablet (Zetia) 5 mg PO QPM High Cholesterol 12/02/24 05/20/25 History
venlafaxine 150 mg 225 mg PO HS Diabetes 12/02/24 05/20/25 History
capsule,extended release 24 hr
calcium carbonate (Tums) 200 mg PO BIDPRN PRN gerd 01/27/25 05/20/25 History
therapeutic multivitamin 1 tab PO QPM Supplement 01/27/25 05/20/25 History
carvedilol 6.25 mg tablet 6.25 mg PO BID #60 tabs 01/30/25 05/20/25 Rx
rosuvastatin 10 mg PO HS High Cholesterol 03/03/25 05/20/25 History
clopidogrel 75 mg tablet (Plavix) 75 mg PO DAILY 05/20/25 05/20/25 History
Review of Systems
-
History Source: Patient
Constitutional: No Symptoms
Physical Exam
Vital Signs
Temp Pulse Resp BP Pulse Ox
97.5 F 94 18 136/80 93
05/21/25 03:55 05/21/25 03:55 05/21/25 03:55 05/21/25 03:55 05/21/25 03:55
Lab Results
05/20/25 15:44
Troponin I 0.046 ng/ml H* 05/20/25 15:44
Vnr-W-Djvzgxfveca Pept 56770 pg/ml 05/20/25 15:44
GEN: No distress, awake, Ox3
HEENT: supple, anicteric, mmm
LUNGS: Rales left base
CV: Reg, S1/S2, 2/6 syst LSB
ABD: soft, BS+, NT/ND
EXT: No edema
NEURO: Gross non-focal
SKIN: No rash
Impression / Plan
-
PCP: Brandi Tran MD
CDY: Nahun Isidro MD
Bladder Cleaner: Dr. Knapp
Impression:
Admitted with acute heart failure reduced EF
ELEAZAR on CKD
s/p [employer] CONDUCTOR FREIGHT�D 12/02/24
Chronic HFrEF
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
CAD
s/p CABG (1984)
Left main PCI (2015)
s/p cardiac cath with iFR negative RCA, 3 patent grafts severe stenosis in the ramus that was unable to be intervened on and will be managed medically 09/15/24
CKD3a
HTN
Hyperlipidemia
AAA, s/p EVAR (2017)
B/L Carotid artery stenosis, s/p bilateral carotid endarterectomies
PAD, s/p Left Femoral endarterectomy (2018) and prior RLE stenting
Left retinal occlusion with blindness/glaucoma
GERD
BPH
Echo 01/28/2025: EF 38%. Moderately diminished right ventricular function. Moderate to severe MR. Mild to moderate TR. PAP 43 mmHg
Echo 09/09/2024: EF 25 to 30%, mild to moderate MR, moderate TR with mild PHTN and PAP 40 mmHg
Echo 01/28/2025: EF 38% by Meier's method, but visually 20 to 25% which is similar to echo from 4-25, moderately diminished RV function, moderate to severe MR
Echo 04/14/2025: Normal LV size, LVEF 25%, normal RV size and function, mild AI, moderate MR, moderate TR, mild to moderate MS
Plan:
Acute on chronic heart failure with reduced EF
-proBNP elevated at 23,200 and chest x-ray with small to moderate left pleural effusion
-Reviewed device interrogation. Outpatient OptiVol fluid index has been gradually increasing since mid March 2025, correlates with heart failure exacerbation
-cont IV diuresis with close monitoring of renal fxn. Baseline outpt creat has been 1.3-1.5
-weight down 9 pounds since admission
-baseline wt 156 lbs at 03/2025 outpt OV. Current wt 165 lbs.
-Patient does not take a loop diuretic chronically as an outpatient but may need to discharge on standing diuretic
-EF was 25% by last echo 04/14/2025.
-Outpatient dose of Coreg 6.125 mg BID was continued on admission
-Patient is not chronically on DELIA/ARB/ARNI due to previous intolerance with ELEAZAR and hypotension
-Patient is not chronically on aldosterone antagonist due to previous intolerance with ELEAZAR and hypotension
-Patient is not chronically on SGLT2 inhibitor due to cost
-troponin mildly elevated, repeat- I ordered. No CP.
-f/u with Dr. Isidro at [facility] as planned.
Data Reviewed
-
EKG: Tracing Personally Visualized and interpreted
Labs: Labs Reviewed by me
Old Records: Reviewed
[2025-05-21 07:36] VITALS: BP 140/72
[2025-05-21] MEDS: ALPHAGAN 0.2% EYE DROPS 1 DROP OPHTH ×2 (08:19→20:25)
[2025-05-21] MEDS: TIMOPTIC 0.5% OPHTHALMIC SOLUTION 1 DROP OPHTH ×2 (08:19→20:25)
[2025-05-21] MEDS: PLAVIX 75 MG PO (08:20)
[2025-05-21] MEDS: IMDUR (EXTENDED RELEASE) 30 MG PO (08:20)
[2025-05-21] MEDS: COREG 6.25 MG PO ×2 (08:20→20:23)
[2025-05-21] MEDS: HEPARIN 5000 UNITS SC ×2 (08:20→20:23)
[2025-05-21] MEDS: LASIX 80 MG IV ×2 (08:21→16:06)
--- NOTE | 2025-05-21 08:48 | W.PN.HOSP.TC ---
Addendum entered and electronically signed by Adrian Perkins MD 05/21/25 17:09:
Stage 1 bilateral heels pressure injuries POA
Original Note:
Today's Communication/Plan
-
see plan
Assessment / Plan
Assessment / Plan
Gen: NAD, AAOx3.
Eyes: EOMI, no scleral icterus.
Neck: supple.
CV: RRR with occasional premature beats, +S1/S2, no m/r/g.
Resp: CTAB
Abd: +BS, soft, NT, ND
Skin: 1+ B/L LE edema
Neuro: CN 2-12 intact, non-focal.
Psych: Normal mood and affect.
Echo 04/14/25:
1. Severe left ventricular systolic dysfunction.
2. Moderate MR/TR.
3. Moderate pulmonary hypertension.
CXR 05/20/25: Slightly increased small to moderate left pleural effusion and trace right pleural effusion.
Acute on chronic HFrEF:
-presents with worsening LE edema, wt gain of 8-9lbs despite increasing lasix GROCERY BAGGER
-proBNP 23,200, CXR above
-cont Lasix 80mg IV BID
-daily wts, I/Os
-recent echo above, EF 25%
-h/o AICD
-c/s cards
-cont BB/SGLT2i
B/L heel pain:
-likely a sequelae of edema as well as PAD vs neuropathic
-will start neurontin and monitor for response
Other problems:
Nonischemic myocardial injury
CAD s/p CABG: cont BB/statin/Brilinta
Essential HTN: cont BB/Imdur
HLD: cont statin
CKD3a
PAD with h/o L femoral endarterectomy and B/L CEA: cont statin/Brilinta
Anxiety/Depression: cont Effexor
GERD: start PPI
Glaucoma, blind in L eye
Hyponatremia, mild
FULL/heparin
Anticipated Discharge: 24 - 48 hours
Subjective/Interval History
-
Date of Service: May 21, 2025
'I feel terrific.' SOB improving. States numbness in feet has resolved but c/o pain in both heels with standing.
Objective Data
-
Labs:
Laboratory Results
05/21/25
07:49
Sodium Pending
Potassium Pending
Chloride Pending
Carbon Dioxide Pending
BUN Pending
Creatinine Pending
Glucose Pending
Calcium Pending
Vital Signs:
Vital Signs
Temp Pulse Resp BP Pulse Ox
97.8 F 88 16 140/72 100
05/21/25 07:36 05/21/25 08:20 05/21/25 07:36 05/21/25 08:20 05/21/25 07:36
I&O
05/20/25 05/21/25 05/22/25
06:59 06:59 06:59
Intake Total 600 / 600
Output Total 3224 / 3224
Balance -2624 / -2624
[2025-05-21 09:38] LABS: Blood Urea Nitrogen 48 mg/dl (9-20); Calcium 8.6 mg/dl (8.4-10.2); Carbon Dioxide 25 mmol/L (22-30); Chloride 103 mmol/L (98-107); Estimated Creatinine Clearance 37 ml/min; Glucose 123 mg/dl (70-99); Potassium 3.5 mmol/L (3.5-5.1); Sodium 137 mmol/L (135-145); eGFR 43.83
[2025-05-21] MEDS: PROTONIX 40 MG PO (10:26)
[2025-05-21] MEDS: NEURONTIN 100 MG PO ×3 (10:26→22:18)
[2025-05-21 10:41] LABS: Troponin I 0.048 ng/ml
[2025-05-21 11:56] VITALS: BP 110/65
[2025-05-21 15:19] VITALS: BP 119/71
[2025-05-21] MEDS: TRUSOPT 2% OPHTHALMIC SOLUTION 1 DROP BOTH EYES ×2 (16:11→22:19)
--- NOTE | 2025-05-21 16:17 | PN.CDI ---
CDI
- -
CDI:
Physician Documentation Request
Admit Date: 05/20/25 18:43
Dear Doctor,
Please review the following and provide your response in the progress notes.
Clinical Indicators:
Pt admitted for Acute on chronic HFrEF
05/20 RN skin assessment in wound panel noted Stage 1 bilateral heels pressure injuries POA
Physician documentation of the type and location of wounds is required for compliant documentation. Based on the above clinical findings and your assessment, please provide the following in your progress note:
1. Location of the ulcer/wound, including laterality.
2. Type (etiology) of ulcer/wound:
Bilateral heels stage 1 pressure injuries POA
Bilateral heels non-pressure injuries POA
Other
Use of terms such as suspected, likely, concern for, or probable (associated with a specific diagnosis that is being evaluated, monitored, or treated as if it exists) are acceptable and can be coded in the inpatient setting, when documented at the
time of discharge.
Thank you,
Jaida Calhoun RN, BSN
CDI Specialist
[place] [facility]
Please use your independent medical judgment in providing your response.
*Source: National Pressure Ulcer Advisory Panel (NPUAP)
[2025-05-21] MEDS: THERAGRAN 1 TABLET PO (18:13)
[2025-05-21] MEDS: ZETIA 5 MG PO (18:13)
[2025-05-21] MEDS: B COMPLEX w/VITAMIN C 1 CAPLET PO (18:13)
[2025-05-21] MEDS: XALATAN OPHTHALMIC SOLUTION 1 DROP BOTH EYES (18:13)
[2025-05-21 19:59] VITALS: BP 146/79
[2025-05-21] MEDS: CRESTOR 10 MG PO (20:24)
[2025-05-21] MEDS: EFFEXOR XR 225 MG PO (20:26)
[2025-05-21 23:53] VITALS: BP 141/76
[2025-05-22 03:45] VITALS: BP 134/75
[2025-05-22 06:00] VITALS: BMI 24.2
[2025-05-22 07:52] VITALS: BP 131/72
[2025-05-22 08:35] LABS: Troponin I 0.061 ng/ml
[2025-05-22 08:40] LABS: Blood Urea Nitrogen 47 mg/dl (9-20); Calcium 8.6 mg/dl (8.4-10.2); Carbon Dioxide 26 mmol/L (22-30); Chloride 103 mmol/L (98-107); Estimated Creatinine Clearance 39 ml/min; Glucose 144 mg/dl (70-99); Potassium 3.4 mmol/L (3.5-5.1); Sodium 137 mmol/L (135-145); eGFR 47.36
[2025-05-22] MEDS: LASIX 80 MG IV (08:53)
[2025-05-22] MEDS: PLAVIX 75 MG PO (08:54)
[2025-05-22] MEDS: HEPARIN 5000 UNITS SC (08:54)
[2025-05-22] MEDS: NEURONTIN 100 MG PO (08:54)
[2025-05-22] MEDS: COREG 6.25 MG PO (08:54)
[2025-05-22] MEDS: PROTONIX 40 MG PO (08:54)
[2025-05-22] MEDS: IMDUR (EXTENDED RELEASE) 30 MG PO (08:54)
[2025-05-22] MEDS: ALPHAGAN 0.2% EYE DROPS 1 DROP OPHTH (08:56)
[2025-05-22] MEDS: TIMOPTIC 0.5% OPHTHALMIC SOLUTION 1 DROP OPHTH (08:57)
[2025-05-22] MEDS: TRUSOPT 2% OPHTHALMIC SOLUTION 1 DROP BOTH EYES (08:57)
--- NOTE | 2025-05-22 11:12 | W.PN.HOSP.TC ---
Today's Communication/Plan
-
d/c
Assessment / Plan
Assessment / Plan
Gen: NAD, AAOx3.
Eyes: EOMI, no scleral icterus.
Neck: supple.
CV: RRR, +S1/S2, no m/r/g.
Resp: faint rales L base
Abd: +BS, soft, NT, ND
Skin: trace B/L LE edema
Neuro: CN 2-12 intact, non-focal.
Psych: Normal mood and affect.
Echo 04/14/25:
1. Severe left ventricular systolic dysfunction.
2. Moderate MR/TR.
3. Moderate pulmonary hypertension.
CXR 05/20/25: Slightly increased small to moderate left pleural effusion and trace right pleural effusion.
Acute on chronic HFrEF:
-presents with worsening LE edema, wt gain of 8-9lbs despite increasing lasix DYNAMICS AX DEVELOPER
-proBNP 23,200, CXR above
-s/p IV Lasix, now transitioned to PO Lasix
-daily wts, I/Os
-recent echo above, EF 25%
-h/o AICD
-cont BB/SGLT2i
-cleared for d/c by cards
B/L heel pain:
-likely a sequelae of edema as well as PAD vs neuropathic
-Neurontin started, monitor for response
Other problems:
Nonischemic myocardial injury
CAD s/p CABG: cont BB/statin/Brilinta
Essential HTN: cont BB/Imdur
HLD: cont statin
CKD3a
PAD with h/o L femoral endarterectomy and B/L CEA: cont statin/Brilinta
Anxiety/Depression: cont Effexor
GERD: start PPI
Glaucoma, blind in L eye
Hyponatremia, mild
FULL/heparin
Total time spent on d/c = 31 min. This included today's physical exam, progress note, review of laboratory and diagnostic data, preparation of discharge documents and prescriptions, and discussions about the pt's hospital course and discharge plan
with the patient and other medical laboratory technicians involved in the patient's care.
Anticipated Discharge: Today
Subjective/Interval History
-
Date of Service: May 22, 2025
Denies SOB.
Objective Data
-
Labs:
Laboratory Results
05/22/25
07:53
Sodium 137
Potassium 3.4 L
Chloride 103
Carbon Dioxide 26
BUN 47 H
Creatinine 1.5 H
Glucose 144 H
Calcium 8.6
Vital Signs:
Vital Signs
Temp Pulse Resp BP Pulse Ox
97.8 F 90 18 131/72 97
05/22/25 07:52 05/22/25 07:52 05/22/25 07:52 05/22/25 07:52 05/22/25 07:52
I&O
05/21/25 05/22/25 05/23/25
06:59 06:59 06:59
Intake Total 600 / 600 720 / 720
Output Total 3225 / 3225 2875 / 2875
Balance -2625 / -2625 -2155 / -2155
--- NOTE | 2025-05-22 11:43 | W.PN.CARDCBS ---
Today's Communication / Plan
-
Stable cardiology status for discharge on Lasix 80 mg daily
Follow-up with cardiology at [facility]
Discussed with primary service
Impression / Plan
-
PCP: Brandi Tran MD
CDY: Nahun Isidro MD
Chief Drafter: Dr. Knapp
Impression:
Admitted with acute heart failure reduced EF
ELEAZAR on CKD
Elevated troponin, nonischemic myocardial injury
s/p [employer] NEWSPAPER CARRIER�D 12/02/24
Chronic HFrEF
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
CAD
s/p CABG (1984)
Left main PCI (2015)
s/p cardiac cath with iFR negative RCA, 3 patent grafts severe stenosis in the ramus that was unable to be intervened on and will be managed medically 09/15/24
CKD3a
HTN
Hyperlipidemia
AAA, s/p EVAR (2017)
B/L Carotid artery stenosis, s/p bilateral carotid endarterectomies
PAD, s/p Left Femoral endarterectomy (2017) and prior RLE stenting
Left retinal occlusion with blindness/glaucoma
GERD
BPH
Echo 01/28/2025: EF 38%. Moderately diminished right ventricular function. Moderate to severe MR. Mild to moderate TR. PAP 43 mmHg
Echo 09/09/2024: EF 25 to 30%, mild to moderate MR, moderate TR with mild PHTN and PAP 40 mmHg
Echo 01/28/2025: EF 38% by Meier's method, but visually 20 to 25% which is similar to echo from 10-02, moderately diminished RV function, moderate to severe MR
Echo 04/14/2025: Normal LV size, LVEF 25%, normal RV size and function, mild AI, moderate MR, moderate TR, mild to moderate IL
Plan:
Weight down possibly as much is 15 pounds since admission
Outpatient dry weight felt to be 156 pounds and is close to that with dry weight of 159 pounds
Stable cardiology status for discharge on Lasix 80 mg p.o. daily
Follow-up with outpatient top coater at [facility]
-Patient is not chronically on DELIA/ARB/ARNI due to previous intolerance with ELEAZAR and hypotension
-Patient is not chronically on aldosterone antagonist due to previous intolerance with ELEAZAR and hypotension
-Patient is not chronically on SGLT2 inhibitor due to cost
.
Progress Note - Screw Machine Adjuster Automatic
Subjective
Date of Service: May 22, 2025
No complaints
Objective
Labs:
05/20/25 15:44
05/22/25 07:53
Labs
Hgb 11.9 g/dL (13.0-18.0) L 05/20/25 15:44
Hct 37.6 % (39.0-52.0) L 05/20/25 15:44
Plt Count 217 10^3/uL (130-400) 05/20/25 15:44
Sodium 137 mmol/L (135-145) 05/22/25 07:53
Potassium 3.4 mmol/L (3.5-5.1) L 05/22/25 07:53
BUN 47 mg/dl (9-20) H 05/22/25 07:53
Creatinine 1.5 mg/dL (0.7-1.3) H 05/22/25 07:53
Glucose 144 mg/dl (70-99) H 05/22/25 07:53
Troponins
05/20/25 05/21/25 05/22/25
15:44 10:02 07:53
Troponin I 0.046 H* 0.048 H* 0.061 H*
Vital Signs and I&O:
Vital Signs
Temp Pulse Resp BP Pulse Ox
97.8 F 90 18 131/72 97
05/22/25 07:52 05/22/25 07:52 05/22/25 07:52 05/22/25 07:52 05/22/25 07:52
Vital Signs
Temp Pulse Resp BP Pulse Ox
97.8 F 90 18 131/72 97
05/22/25 07:52 05/22/25 07:52 05/22/25 07:52 05/22/25 07:52 05/22/25 07:52
Intake & Output
05/20/25 05/21/25 05/22/25 05/23/25
06:59 06:59 06:59 06:59
Intake Total 600 / 600 720 / 720
Output Total 3225 / 3225 2875 / 2875
Balance -2625 / -2625 -2155 / -2155
Physical Exam
Physical Exam
General: Well developed, well nourished in NAD.
Neck: Supple, no JVD, HJR, carotids +2 B/L, no bruits bilaterally.
Heart: Non displaced PMI, RRR, no murmurs, No S3, S4, no rubs.
Lungs: Scattered rhonchi
Extremities: No clubbing, cyanosis or edema bilaterally.
Neuro: Grossly nonfocal, awake, alert and oriented x3.
[2025-05-22 11:45] VITALS: BP 119/65
[2025-05-22] MEDS: KCL 40 MEQ PO (11:47)
--- NOTE | 2025-05-22 13:31 | W.DCSUMMARY ---
Discharge Summary
Discharge Data
Date of Admission: 05/20/25
Date of Discharge: 05/22/25
-
Pending Results: No
Hospital Course
Primary diagnoses:
Acute on chronic heart failure with reduced ejection fraction
Secondary diagnoses:
Bilateral heel pain
Nonischemic myocardial injury
h/o AICD
Coronary artery disease s/p CABG
Essential hypertension
Hyperlipidemia
Chronic kidney disease 3a
Peripheral arterial disease with h/o L femoral endarterectomy and B/L carotid endarterectomy
Anxiety
Depression
Gastroesophageal reflux disease
Glaucoma, blind in L eye
Hyponatremia
Consultants:
Cardiology
Imaging:
Echo 04/14/25:
1. Severe left ventricular systolic dysfunction.
2. Moderate MR/TR.
3. Moderate pulmonary hypertension.
CXR 05/20/25: Slightly increased small to moderate left pleural effusion and trace right pleural effusion.
79-year-old male who presented with a chief complaint of bilateral lower extremity edema as outlined in the H&P done on admission. Hospital course by problem list:
Acute on chronic HFrEF: The patient presented with worsening bilateral lower extremity edema and a weight gain of 8-9lbs despite increasing lasix prior to admission. proBNP 23,200, CXR above. The patient was diuresed with IV Lasix and his shortness
of breath resolved. His lower extremity edema improved. Echo above. Patient was cleared for discharge by cardiology.
B/L heel pain: This was likely a sequelae of edema as well as PAD vs neuropathic. Neurontin was started while hospitalized.
Discharge Plan
-
Patient Disposition: Home (Routine Discharge)
Discharge Diagnosis/Procedures: Acute on chronic heart failure with reduced ejection fraction
Condition: Good
Diet: Low Cholesterol, 2 Gram Sodium and Other diet
Additional Diets: fluid restrict to 1200cc/day
Activity: As tolerated
Driving Restrictions: Not until seen by your Dr
Blood Work: BMP and CBC in 3 days, prescription from PCP
Specialty Instructions: Weigh Daily- Call MD for wt gain/loss 3 lbs overnight/5 lbs in 1 week
Instructions: *[facility] Heart Failure Instructions
Referrals:
Teja Lazaro MD [Active, Cardiology] - in less than 1 week
Brandi Tran MD [Family Provider, Internal Medicine] - in less than 1 week
Prescriptions:
New
furosemide 80 mg Tablet
80 mg PO DAILY Qty: 30 0RF
pantoprazole 40 mg Tablet,Delayed Release (Dr/Ec)
40 mg PO DAILY Qty: 30 0RF
gabapentin 100 mg Capsule
100 mg PO BID Qty: 60 0RF
Continued
isosorbide mononitrate 30 mg Tablet Extended Release 24 Hr
30 mg PO DAILY
vitamin B complex Tablet
1 tab PO QPM
brimonidine-timolol [Combigan] 0.2-0.5 % Drops
1 drp BOTH EYES BID
venlafaxine 150 mg Capsule,Extended Release 24hr
225 mg PO HS
ezetimibe [Zetia] 10 mg Tablet
5 mg PO QPM
coenzyme Q10 [Co Q-10] 200 mg Capsule
200 mg PO QPM
therapeutic multivitamin Tablet
1 tab PO QPM
calcium carbonate [Tums] 200 mg calcium (500 mg) Tablet,Chewable
200 mg PO BIDPRN PRN (Reason: gerd)
carvedilol 6.25 mg Tablet
6.25 mg PO BID Qty: 60 0RF
rosuvastatin 10 mg
10 mg PO HS
clopidogrel [Plavix] 75 mg Tablet
75 mg PO DAILY
Vyzulta 0.024 % Drops
1 drp OPHTHALMIC (EYE) QPM
dorzolamide 2 % Drops
1 drp OPHTHALMIC (EYE) TID
Discharge Orders:
Discharge Patient (As Directed); Ordered 05/22/25
Ordered By: Adrian Perkins
Discharge Date and Time
Print Language: TELUGU
--- NOTE | 2025-05-22 13:58 | CM ---
CM met with pt and spouse bedside
They reside in a [facility] with 3STE, full flight the 2nd floor
Pt is independent with use of a SPC
PCP- Brandi Tran
Rx- ZIGGY Aragon
Pt reviewed with attending and ready for dc
VN discussed wt pt for HF management- he is in agreement
Referral to [facility] made and pending
VN order requested
Discharge Disposition- home with [facility], family transport
== END 2025-05-22 14:18 | disposition home or self-care (01) | DRG 291 ==
LOC: 4 EAST ACU 18:43
PROVIDERS: Emergency Medicine; Nurse Practitioner; Nurse Practitioner Family; ADMITTING PHYSICIAN Internal Medicine; EMERGENCY PHYSICIAN Emergency Medicine; FAMILY PHYSICIAN Student in an Organized Health Care Education/Training Program; OTHER PHYSICIAN Internal Medicine Cardiovascular Disease
DX: I13.0 Hypertensive heart and chronic kidney disease with heart failure and stage 1 through stage 4 chronic kidney disease, or unspecified chronic kidney disease (principal); I50.23 Acute on chronic systolic (congestive) heart failure; E87.1 Hypo-osmolality and hyponatremia; N17.9 Acute kidney failure, unspecified; F17.200 Nicotine dependence, unspecified, uncomplicated; I5A Non-ischemic myocardial injury (non-traumatic); N18.31 Chronic kidney disease, stage 3a; F32.A Depression, unspecified; F41.9 Anxiety disorder, unspecified; K21.9 Gastro-esophageal reflux disease without esophagitis; I27.20 Pulmonary hypertension, unspecified; L89.611 Pressure ulcer of right heel, stage 1; L89.621 Pressure ulcer of left heel, stage 1; Z79.02 Long term (current) use of antithrombotics/antiplatelets; Z79.899 Other long term (current) drug therapy
CPT/HCPCS: 71046; 80048; 80053; 83880; 84484; 85025; 93005; 96374; 99285